=== PATIENT | female | born 1945 | race Caucasian/White ===

== ENCOUNTER 2019-06-13 12:44 | Inpatient (IN) ==
[2019-06-13] MEDS ORDERED: Naloxone 0.4 MG/ML INJ IVP PRN (15:03)
[2019-06-13] MEDS ORDERED: Ondansetron 4 MG/2 ML VIAL IVP PRN (15:03)
[2019-06-13] MEDS ORDERED: MethylPREDNISolone 40 MG/ML VIAL IVP SCH (15:06)
[2019-06-13] MEDS ORDERED: *HR* OxyCODONE/APAP 5/325 TABLET PO PRN (15:07)
[2019-06-13] MEDS ORDERED: Isovue-370 500 ML BOTTLE IVP ONE (15:18)
--- NOTE | 2019-06-13 15:45 | Internal Med History&Physical ---
Date of Encounter: 06/13/19 Time of Encounter: 15:35 Internal Medicine - H&P: HPI Chief complaint: shortness of breath Plans for Post Hospital Care: Home History of present illness: Ms. Ruiz is a 73 year old female PHM of COPD, limited stage, Small Cell carcinoma of the lung on immunotherapy infusion every other , HTN and CAD. Patient presented to the ED due to 2 1/2 days history of shortness of breath. Patient reported she was having some respiratory symptoms on the of the month, and her oncologist start her on a 5 days course of oral antibiotics and a prednisone taper, reported she was feeling well for a couple of days after completing treatment with those medications, but for the past 2 1/2 days she has been feeling short of breath, reported the shortness of breath has been progressively getting worse to the point that she has not been able to get out of bed for the past 2 days, reported she tried to get out of bed today but she almost passed out due to shortness of breath. Denies chest pain, abdominal pain or urinary symptoms but reported productive cough of clear sputum. denies sick contacts. Reported being compliant with her medications and tryin her nebs at home with it did not help and decided to come to the ED for evaluation. Patient was transferred from [facility] for further management. Past Med Surg Social Fam HX - Past Medical History Medical history: COPD, GERD, hyperlipidemia, other Additional medical history: lung cancer Psychiatric history: no psych history - Past Surgical History Surgical History: hysterectomy Additional surgical history: bronchoscopy - Social History Smoking Status: Former smoker Smokeless Tobacco Status: No Alcohol use: none Drug use: none - Family History Father Living Status: Age at : 79 Cause of : CVA Hx Family Cardiac Disorders: Yes Hx Family Cancer: Yes Hx Family Neurologic Disorders: Yes Hx Family Medical Disorders: Yes Internal Medicine - H&P: Meds Duloxetine HCl [Cymbalta] 60 mg PO DAILY 07/28/18 [History] Ipratropium/Albuterol Neb [Duoneb] 3 ml IH Q6HR PRN 07/28/18 [History] Omeprazole [PriLOSEC] 20 mg PO QAM 09/09/18 [History] Amitriptyline [Elavil] 25 mg PO DAILY PRN 12/01/18 [History] Cetirizine HCl [Zyrtec] 10 mg PO DAILY #30 tablet 01/21/19 [Rx] Rivaroxaban [Xarelto] 20 mg PO DAILY #30 tablet 03/04/19 [Rx] Ondansetron HCl [Zofran] 4 mg PO Q6HR 03/18/19 [History] OxyCODONE/APAP 5/325 [Percocet 5/325 MG] 1 each PO Q6HR PRN 03/18/19 [History] Albuterol Sulfate [Ventolin Hfa] 18 gm IH Q4H PRN 05/19/19 [History] Allergy/AdvReac Type Severity Reaction Status Date / Time Influenza Virus Vaccines AdvReac Unknown Weakness Verified 05/19/19 13:57 All Systems PM: A 10-system review of systems was performed and is negative for pertinent findings except as documented above in the HPI. - Constitutional Constitutional: weakness, no chills, no fever(s), no malaise - EENT Nose, mouth and throat: no dry mouth - Cardiovascular Cardiovascular ROS IM: dyspnea, dyspnea on exertion, lightheadedness, no chest pain, no edema, no irregular heart rhythm, no orthopnea, no palpitations, no paroxysmal nocturnal dyspnea - Respiratory Respiratory: cough, dyspnea on exertion, wheezing, no chest congestion, no excessive phlegm production - Gastrointestinal Gastrointestinal: no abdominal pain, no dyspepsia, no dysphagia, no nausea, no vomiting - Genitourinary Genitourinary: no dysuria - Musculoskeletal Musculoskeletal ROS IM: no back pain - Integumentary Integumentary IM: no erythema, no non-healing lesions - Psychiatric Psychiatric: no anxiety, no irritability - Endocrine Endocrine IM: no cold intolerance - Hematologic/Lymphatic Hematologic/Lymphatic: no easy bruising, no lymphadenopathy - Allergic/Immunologic Allergic/Immunologic: no GI upset with certain foods - Constitutional Vitals: Pulse Resp BP Pulse Ox 105 24 118/78 96 06/13/19 14:36 06/13/19 14:36 06/13/19 14:36 06/13/19 14:36 Exam: Vitals: Reviewed General: Alert and oriented x4. In mild distress due to shortness of breath Skin: Normal color, no rash, no lesions. HEENT: EOM, pupils equal, round and reactive. Cardiovascular: RRR, normal S1 & S2, no rubs, murmurs or gallops. Lungs: Scattered b/l wheezes, no rales or crackles. Abdomen: Soft, non-tender, no rigidity. Extremities: No deformity, no edema or tenderness, no joint swelling or clubbing. Neurological: Normal cognition and motor skills. Rest of the physical exam is non contributory - Assessment and Plan (1) Acute exacerbation of chronic obstructive airways disease Current Visit: No Status: Acute Assessment and plan: Patient in mild respiratory distress with b/l scattered expiratory wheezing. Plan Started on bronchodilators Q4RT scheduled Solu-Medrol 40mg/IV Q8hr symbicort. started on empiric antibiotics coverage with levofloxacin 750mg/IV daily Sputum culture and gram stain Respiratory panel ordered urine for atypical organist sent O2 by nasal cannula, titrate for O2Sat >92% CTA of the chest ordered, to evaluate for possible progression of lung ca vs r/o infectious process. (2) DVT prophylaxis Current Visit: Yes Status: Acute Assessment and plan: intermittent pneumatic compression b/l. (3) Acute respiratory failure with hypoxia Current Visit: No Status: Acute Assessment and plan: plan as per problem #1 (4) DVT (deep venous thrombosis) Current Visit: No Status: Chronic Assessment and plan: patient with a Hx of port related DVT. will continue rivaroxaban 20mg/PO daily. Qualifiers: DVT location: non-extremity vein Chronicity: unspecified Qualified Code(s): I82.90 - Acute embolism and thrombosis of unspecified vein (5) Lung cancer Current Visit: No Status: Acute Assessment and plan: Limited stage, Small Cell carcinoma of the lung. Qualifiers: Laterality: right Lung location: hilum of lung Qualified Code(s): C34.01 - Malignant neoplasm of right main bronchus (6) Anxiety Current Visit: No Status: Chronic - Time Spent With Patient Total time spent is greater than 50% in coordination of care (as documented) at patient's floor/unit and/or counseling patient: Greater than 35 minutes (45)
[2019-06-13 15:55] LABS: Basophils # 0.1 K/mcL (0.0-0.2); Basophils % 0.8 %; Eosinophils # 0.5 K/mcL (0.0-0.6); Hematocrit 28.3 % (35.3-44.9); Hemoglobin 8.7 g/dL (11.5-15.4); Immature Granulocytes % 0.4 % (0-4); Lymphocytes # 0.8 K/mcL (0.6-4.6); Lymphocytes % 7.5 %; Mean Corpuscular HGB Conc 30.7 g/dL (31.6-35.5); Mean Corpuscular Hemoglobin 29.3 pg (28.0-33.3); Mean Corpuscular Volume 95.3 fL (83.0-100.0); Mean Platelet Volume 8.7 fL (9.4-12.4); Monocytes # 0.8 K/mcL (0.0-1.3); Monocytes % 7.5 %; Neutrophils # 8.1 K/mcL (1.6-8.9); Platelet Count 374 K/mcL (140-400); Red Blood Count 2.97 M/mcL (3.82-4.97); Red Cell Distribution Width 15.6 % (11.5-14.5); Segmented Neutrophils % 78.8 %; White Blood Count 10.3 K/mcL (4.3-11.1)
[2019-06-13] MEDS: Ipratropium/Albuterol Neb 3 ML IH SCH ×2 (16:12→20:23)
[2019-06-13 16:14] LABS: Alanine Aminotransferase 8 Units/L (7-52); Albumin 3.6 g/dL (3.5-5.7); Albumin/Globulin Ratio 1.3 (1.1-2.2); Alkaline Phosphatase 87 Units/L (34-104); Aspartate Amino Transferase 13 Units/L (13-39); BUN/Creatinine Ratio 13 (6-26); Bilirubin,Total 0.2 mg/dL (0.3-1.0); Blood Urea Nitrogen 9 mg/dL (8-23); Calcium 8.8 mg/dL (8.6-10.3); Carbon Dioxide 27 mEq/L (23-29); Chloride 102 mEq/L (98-107); Globulin 2.7 g/dL (2.4-3.5); Glucose 162 mg/dL (70-105); Magnesium 2.1 mg/dL (1.6-2.6); Osmolality,Calculated 284 (280-300); Potassium 3.8 mEq/L (3.5-5.1); Sodium 136 mEq/L (136-145); Total Protein 6.3 g/dL (6.4-8.9); eGFR For African Americans > 60 (> 60); eGFR For Non-African Americans > 60 (> 60)
[2019-06-13] MEDS: MethylPREDNISolone 40 MG/ML VIAL IVP SCH (17:00)
[2019-06-13] MEDS: *HR* Rivaroxaban 10 MG TABLET PO SCH (17:00)
[2019-06-13] MEDS: levoFLOXacin 750 MG/150 ML 750 MG/150 ML BAG IVPB SCH (17:00)
[2019-06-13 18:05] LABS: INR 1.3; Prothrombin Time 14.8 Seconds (9.4-12.1)
[2019-06-13 18:08] LABS: Activated Partial Thrombo Time 37.2 Seconds (26.0-36.0)
[2019-06-13] MEDS: Budesonide/Formoterol 160/4.5 1 PUFF INH IH SCH (20:23)
[2019-06-13] MEDS ORDERED: *HR* LORazepam 0.5 MG TABLET PO ONE (21:01)
[2019-06-13 22:22] LABS: Adenovirus Not Detected (Not Detect); Coronavirus 229E Not Detected (Not Detect); Coronavirus HKU1 Not Detected (Not Detect); Coronavirus NL63 Not Detected (Not Detect); Coronavirus OC43 Not Detected (Not Detect); Human Metapneumovirus Not Detected (Not Detect)
[2019-06-13 22:23] LABS: Bordetella Pertussis Not Detected (Not Detect); Chlamydophila pneumoniae Not Detected (Not Detect); Human Rhinovirus/Enterovirus Not Detected (Not Detect); Influenza A Subtype 2009 H1 Not Detected (Not Detect); Influenza A Untypeable Not Detected (Not Detect); Influenza B Not Detected (Not Detect); Mycoplasma pneumoniae Not Detected (Not Detect); Parainfluenza Virus 1 Not Detected (Not Detect); Parainfluenza Virus 2 Not Detected (Not Detect); Parainfluenza Virus 3 Not Detected (Not Detect); Parainfluenza Virus 4 Not Detected (Not Detect); Respiratory Syncytial Virus Not Detected (Not Detect)
[2019-06-14] MEDS: Ipratropium/Albuterol Neb 3 ML IH SCH ×7 (00:01→23:48)
[2019-06-14] MEDS: MethylPREDNISolone 40 MG/ML VIAL IVP SCH ×4 (00:15→22:55)
[2019-06-14] MEDS: Budesonide/Formoterol 160/4.5 1 PUFF INH IH SCH ×2 (07:24→19:52)
[2019-06-14] MEDS: levoFLOXacin 750 MG/150 ML 750 MG/150 ML BAG IVPB SCH (08:03)
[2019-06-14] MEDS: *HR* LORazepam 0.5 MG TABLET PO PRN ×2 (09:29→22:55)
[2019-06-14] MEDS ORDERED: D5% in Water 1,000 ML IVC PRN (11:18)
[2019-06-14] MEDS ORDERED: *HR* Dextrose 50 % in Water (Syg) 50 ML SYRINGE IVP PRN (11:18)
[2019-06-14] MEDS ORDERED: Dextrose Gel 15 GM/37.5 ML TUBE PO PRN ×2 (11:18)
--- NOTE | 2019-06-14 11:23 | Internal Med Progress Note ---
Hospitalist Progress Note - Encounter Date of Encounter: 06/14/19 Time of Encounter: 11:15 - Subjective Interval History: I have seen and evaluated the patient at bedside. patient reporting feeling well overnight but this morning she started to feel very short of breath. denies chest pain, nausea, vomiting or abdominal pain. - Exam Vitals: Temp Pulse Resp BP Pulse Ox 97.3 F L 124 26 117/74 94 06/14/19 07:11 06/14/19 07:11 06/14/19 11:04 06/14/19 11:04 06/14/19 11:04 Exam: Vitals: Reviewed General: Alert and oriented x4. In mild distress due to shortness of breath Cardiovascular: RRR, normal S1 & S2, no rubs, murmurs or gallops. Lungs: Scattered b/l wheezes, no rales or crackles. Abdomen: Soft, non-tender, no rigidity. Extremities: No edema Neurological: No focal neurological abnormalities. Rest of the physical exam is non contributory - Assessment and Plan (1) Acute exacerbation of chronic obstructive airways disease Current Visit: No Status: Acute Assessment and Plan: patient in mild/moderate respiratory distress. with scattered b/l inspiratory and expiratory wheezing. denies chest pain. respiratory panel: negative CT/CT angio chest IMPRESSION: No evidence of pulmonary embolism. Stable intrathoracic findings including mediastinal and hilar adenopathy, extensive fibrosis as well as emphysema. A 5 mm right lower lobe nodule is unchanged. Large hiatal hernia. Plan ABG placed patient on Bipap. NPO, accu-checks q6HRs plus lispro low dose sliding scale started on IV fluids to avoid hypoglycemia Increase methyl-solumedrol to 40mg/IV Q6HRs c/w scheduled bronchodilators and symbicort will consider pulm consult patient's respiratory status does not improve continue empiric antibiotics (2) Acute respiratory failure with hypoxia Current Visit: No Status: Acute Assessment and Plan: plan of care as above. (3) DVT (deep venous thrombosis) Current Visit: No Status: Chronic Assessment and Plan: patient with a Hx of port related DVT. c/w rivaroxaban 20mg/PO daily. (4) Lung cancer Current Visit: No Status: Chronic Assessment and Plan: Limited stage, Small Cell carcinoma of the lung. patient to follow up with Hem&Onc as outpatient (5) Anxiety Current Visit: No Status: Chronic Assessment and Plan: Patient is on Lorazepam 0.5mg/PO Q6HR PRN. DVT Prophylaxis: Intermittent pneumatic compression for dvt prophylaxis - Summary of Assessment and Plan Summary of Assessment and Plan: Patient to remain in the hospital due to acute copd exacerbation on Bipap. - Time Spent with Patient Total time spent is greater than 50% in coordination of care (as documented) at patient's floor/unit and/or counseling patient: Greater than 35 minutes (45) Plan of Care Discussed with: patient (and the nurse.) Internal Medicine: Result - Labs CBC & Chem 7: 06/13/19 15:42 06/13/19 15:42 Labs: Short CBC 06/13/19 Range/Units 15:42 WBC 10.3 (4.3-11.1) K/mcL Hgb 8.7 L (11.5-15.4) g/dL Hct 28.3 L (35.3-44.9) % Plt Count 374 (140-400) K/mcL Neutrophils # 8.1 (1.6-8.9) K/mcL BMP 06/13/19 15:42 Sodium 136 Potassium 3.8 Chloride 102 Carbon Dioxide 27 BUN 9 Creatinine 0.68 Glucose 162 H Calcium 8.8 Cardiac Enzymes 06/13/19 06/13/19 06/14/19 Range/Units 15:42 22:22 04:03 Troponin I < 0.03 < 0.03 < 0.03 (< 0.04) ng/mL Liver Function 06/13/19 Range/Units 15:42 Total Bilirubin 0.2 L (0.3-1.0) mg/dL AST 13 (13-39) Units/L ALT 8 (7-52) Units/L Alkaline Phosphatase 87 (34-104) Units/L Albumin 3.6 (3.5-5.7) g/dL - ABG Interpretation ABG results: PT/INR, D-dimer PT 14.8 Seconds (9.4-12.1) H 06/13/19 17:17 - Impressions Impressions Chest X-Ray 06/13/19 16:03 IMPRESSION: Persistent chronic reticular changes in both lungs suggesting diffuse interstitial fibrosis No acute abnormality identified D/ / Wallace Jimenez MD / Wallace Jimenez MD Interpreting Provider: Wallace Jimenez MD Chest CTA 06/13/19 18:39 IMPRESSION: No evidence of pulmonary embolism. Stable intrathoracic findings including mediastinal and hilar adenopathy, extensive fibrosis as well as emphysema. A 5 mm right lower lobe nodule is unchanged. Large hiatal hernia. D/ / [place] Qureshi Cha, MD / [place] Qureshi Cha, MD Interpreting Provider: [place] Qureshi Cha, MD Consult Discharge Plan - Plan Referrals: Herbert Mast, [Primary Care Provider] - (3) DVT (deep venous thrombosis) Qualifiers: DVT location: non-extremity vein Chronicity: unspecified Qualified Code(s): I82.90 - Acute embolism and thrombosis of unspecified vein (4) Lung cancer Qualifiers: Laterality: right Lung location: hilum of lung Qualified Code(s): C34.01 - Malignant neoplasm of right main bronchus
[2019-06-14 11:30] LABS: ABG Base Excess 5 mEq/L (-2 to 3); ABG HCO3 29 mEq/L (21-27); ABG Oxygen Saturation 98 % (95-98); ABG PCO2 39 mmHg (35-45); ABG PH 7.47 pH Units (7.32-7.45); ABG PO2 96 mmHg (85-104); ABG TCO2 30 mEq/L (20-26); Blood Gas Modality NIV
[2019-06-14] MEDS ORDERED: D5% in 0.9% NACL 1,000 ML IVC SCH (11:30)
[2019-06-14] MEDS: Insulin LISPRO 300 UNITS/3 ML VIAL SQ SCH ×2 (12:46→22:53)
[2019-06-14] MEDS: *HR* Rivaroxaban 10 MG TABLET PO SCH (17:21)
[2019-06-15] MEDS: Insulin LISPRO 300 UNITS/3 ML VIAL SQ SCH ×3 (00:16→11:39)
[2019-06-15] MEDS: MethylPREDNISolone 40 MG/ML VIAL IVP SCH ×2 (02:05→08:01)
[2019-06-15] MEDS: Ipratropium/Albuterol Neb 3 ML IH SCH ×6 (04:02→23:59)
[2019-06-15 05:37] LABS: Hematocrit 26.8 % (35.3-44.9); Hemoglobin 8.3 g/dL (11.5-15.4); Mean Corpuscular Hemoglobin 29.2 pg (28.0-33.3); Mean Corpuscular Volume 94.4 fL (83.0-100.0); Mean Platelet Volume 8.6 fL (9.4-12.4); Platelet Count 385 K/mcL (140-400); Red Blood Count 2.84 M/mcL (3.82-4.97); Red Cell Distribution Width 15.7 % (11.5-14.5)
[2019-06-15 05:42] LABS: White Blood Count 19.1 K/mcL (4.3-11.1)
[2019-06-15 05:58] LABS: BUN/Creatinine Ratio 26 (6-26); Blood Urea Nitrogen 19 mg/dL (8-23); Calcium 8.8 mg/dL (8.6-10.3); Carbon Dioxide 29 mEq/L (23-29); Chloride 104 mEq/L (98-107); Glucose 153 mg/dL (70-105); Osmolality,Calculated 291 (280-300); Potassium 4.2 mEq/L (3.5-5.1); Sodium 138 mEq/L (136-145); eGFR For African Americans > 60 (> 60); eGFR For Non-African Americans > 60 (> 60)
[2019-06-15] MEDS: Budesonide/Formoterol 160/4.5 1 PUFF INH IH SCH ×2 (07:13→20:15)
[2019-06-15] MEDS: Azithromycin 250 MG TABLET PO SCH (08:01)
[2019-06-15] MEDS: Loratadine 10 MG TABLET PO SCH (10:04)
--- NOTE | 2019-06-15 12:49 | Internal Med Progress Note ---
Hospitalist Progress Note - Encounter Date of Encounter: 06/15/19 Time of Encounter: 12:46 - Subjective Interval History: Patient says that breathing is better than yesterday but not back to her baseline yet. Has some lower back pain that limits her mobility. - Exam Vitals: Temp Pulse Resp BP Pulse Ox 98.1 F 99 16 115/63 99 06/15/19 07:22 06/15/19 07:22 06/15/19 11:12 06/15/19 07:22 06/15/19 11:12 Exam: General: Ill-appearing and in no acute distress HEENT: No erythema of posterior pharynx. No exudates. Lymphatics: No mandibular or cervical lymphadenopathy Cardiovascular: RRR. No murmurs. No chest wall tenderness. Lungs: Scattered wheezing. Regular chest rise. Abdomen: Non-tender. No rebound or gaurding. Nl bowel sounds. Extremities: No edema. 2+ pulses radial and pedal pulses Skin: No rahses, abrasions, or contusions. Nl cap refill. Psych: Nl attention. A&Ox3 Neuro: human resources team member II-XII intact. 5/5 strength. Sensation to light touch and pinprick intact. - Assessment and Plan (1) Acute and chronic respiratory failure with hypoxia Current Visit: Yes Status: Acute Assessment and Plan: Patient with history of chronic respiratory failure secondary to COPD and recently diagnosed lung cancer on home oxygen presents with acute on chronic hypoxic respiratory failure in the setting of stable vitals, diffuse wheezing on physical exam, and chest imaging without acute findings. -Endorses symptoms of seasonal allergies lately -Was started empirically on Claritin by ambulatory provider without much benefit -No evidence of acute infection during hospital stay or PE -Acute decompensation likely secondary to incompletely treated seasonal allergies -Improving with IV steroids PLAN: - IV steroids --> po - Scheduled nebs - Levaquin --> azithromycin - Restart Claritin - we will transitioned this to Zyrtec on discharge (2) Acute exacerbation of chronic obstructive airways disease Current Visit: No Status: Acute Assessment and Plan: See above (3) DVT (deep venous thrombosis) Current Visit: No Status: Chronic Assessment and Plan: History of DVT on Xarelto (4) Lung cancer Current Visit: No Status: Chronic Assessment and Plan: Currently being treated at [facility] with twice monthly immunotherapy. - Follow up with oncology clinic after hospital stay (5) Leukocytosis Current Visit: Yes Status: Acute Assessment and Plan: Likely secondary to high-dose steroid use Internal Medicine: Result - Labs CBC & Chem 7: 06/15/19 05:08 06/15/19 05:08 Labs: Short CBC 06/15/19 Range/Units 05:08 WBC 19.1 H D (4.3-11.1) K/mcL Hgb 8.3 L (11.5-15.4) g/dL Hct 26.8 L (35.3-44.9) % Plt Count 385 (140-400) K/mcL BMP 06/15/19 05:08 Sodium 138 Potassium 4.2 Chloride 104 Carbon Dioxide 29 BUN 19 Creatinine 0.72 Glucose 153 H Calcium 8.8 - ABG Interpretation ABG results: ABG ABG pH 7.47 pH Units (7.32-7.45) H 06/14/19 11:23 ABG pCO2 39 mmHg (35-45) 06/14/19 11:23 ABG pO2 96 mmHg (85-104) 06/14/19 11:23 ABG O2 Saturation 98 % (95-98) 06/14/19 11:23 PT/INR, D-dimer PT 14.8 Seconds (9.4-12.1) H 06/13/19 17:17 Consult Discharge Plan - Plan Referrals: Herbert Mast, [Primary Care Provider] - (3) DVT (deep venous thrombosis) Qualifiers: DVT location: non-extremity vein Chronicity: unspecified Qualified Code(s): I82.90 - Acute embolism and thrombosis of unspecified vein (4) Lung cancer Qualifiers: Laterality: right Lung location: hilum of lung Qualified Code(s): C34.01 - Malignant neoplasm of right main bronchus
[2019-06-15] MEDS: *HR* Rivaroxaban 10 MG TABLET PO SCH (17:08)
[2019-06-16 03:46] LABS: Hemoglobin 8.3 g/dL (11.5-15.4); Mean Corpuscular HGB Conc 30.7 g/dL (31.6-35.5); Mean Corpuscular Hemoglobin 29.1 pg (28.0-33.3); Mean Corpuscular Volume 94.7 fL (83.0-100.0); Mean Platelet Volume 8.6 fL (9.4-12.4); Platelet Count 386 K/mcL (140-400); Red Blood Count 2.85 M/mcL (3.82-4.97); Red Cell Distribution Width 15.6 % (11.5-14.5); White Blood Count 15.7 K/mcL (4.3-11.1)
[2019-06-16 04:06] LABS: BUN/Creatinine Ratio 26 (6-26); Blood Urea Nitrogen 19 mg/dL (8-23); Calcium 8.6 mg/dL (8.6-10.3); Carbon Dioxide 29 mEq/L (23-29); Chloride 103 mEq/L (98-107); Glucose 108 mg/dL (70-105); Osmolality,Calculated 285 (280-300); Potassium 3.8 mEq/L (3.5-5.1); Sodium 136 mEq/L (136-145); eGFR For African Americans > 60 (> 60); eGFR For Non-African Americans > 60 (> 60)
[2019-06-16] MEDS: Ipratropium/Albuterol Neb 3 ML IH SCH ×6 (04:19→23:36)
[2019-06-16] MEDS ORDERED: *HR* Metoprolol 5 MG/5 ML VIAL IVP ONE (06:43)
[2019-06-16] MEDS: Budesonide/Formoterol 160/4.5 1 PUFF INH IH SCH ×2 (07:27→20:27)
[2019-06-16] MEDS: Loratadine 10 MG TABLET PO SCH (08:35)
[2019-06-16] MEDS: Azithromycin 250 MG TABLET PO SCH (08:35)
[2019-06-16] MEDS: predniSONE 20 MG TABLET PO SCH (08:35)
[2019-06-16] MEDS ORDERED: methylPREDNISolone 125 MG/2 ML VIAL IVP ONE (10:13)
--- NOTE | 2019-06-16 10:17 | Internal Med Progress Note ---
Hospitalist Progress Note - Encounter Date of Encounter: 06/16/19 Time of Encounter: 10:14 - Subjective Interval History: Breathing acutely worse this morning when she got up. Says that it was due to acute back pain. Has chronic back pain but says she might have slept on it wrong and woke up with acute pain. Upon reassessment, breathing improved after pain was controlled. - Exam Vitals: Temp Pulse Resp BP Pulse Ox 98.6 F 78 18 115/59 92 06/16/19 04:15 06/16/19 07:05 06/16/19 07:29 06/16/19 07:05 06/16/19 07:29 Exam: General: Ill-appearing and in no acute distress HEENT: No erythema of posterior pharynx. No exudates. Lymphatics: No mandibular or cervical lymphadenopathy Cardiovascular: RRR. No murmurs. No chest wall tenderness. Lungs: Scattered wheezing. Regular chest rise. Abdomen: Non-tender. No rebound or gaurding. Nl bowel sounds. Extremities: No edema. 2+ pulses radial and pedal pulses Skin: No rahses, abrasions, or contusions. Nl cap refill. Psych: Nl attention. A&Ox3 Neuro: gasoline engine assembler II-XII intact. 5/5 strength. Sensation to light touch and pinprick intact. - Assessment and Plan (1) Acute and chronic respiratory failure with hypoxia Current Visit: Yes Status: Acute Assessment and Plan: Patient with history of chronic respiratory failure secondary to COPD and recently diagnosed lung cancer on home oxygen presents with acute on chronic hypoxic respiratory failure in the setting of stable vitals, diffuse wheezing on physical exam, and chest imaging without acute findings. -Endorses symptoms of seasonal allergies lately -Was started empirically on Claritin by ambulatory provider without much benefit -No evidence of acute infection during hospital stay or PE -Acute decompensation likely secondary to incompletely treated seasonal allergies -Breathing versus morning but related to back pain. Still with diffuse wheezing on physical exam. Repeat CXR w/o changes. PLAN: - Methylprednisolone 125mg IV x1 - Prednisone 40mg qd - Scheduled nebs - Azithromycin for anti-inflammatory properties - Control of back pain - Restart Claritin - we will transitioned this to Zyrtec on discharge (2) Acute exacerbation of chronic obstructive airways disease Current Visit: No Status: Acute Assessment and Plan: See above (3) DVT (deep venous thrombosis) Current Visit: No Status: Chronic Assessment and Plan: History of DVT on Xarelto (4) Lung cancer Current Visit: No Status: Chronic Assessment and Plan: Currently being treated at [facility] with twice monthly immunotherapy. - Follow up with oncology clinic after hospital stay (5) Leukocytosis Current Visit: Yes Status: Acute Assessment and Plan: Likely secondary to high-dose steroid use DVT Prophylaxis: Xarelto Internal Medicine: Result - Labs CBC & Chem 7: 06/16/19 03:20 06/16/19 03:20 Labs: Short CBC 06/16/19 Range/Units 03:20 WBC 15.7 H (4.3-11.1) K/mcL Hgb 8.3 L (11.5-15.4) g/dL Hct 27.0 L (35.3-44.9) % Plt Count 386 (140-400) K/mcL BMP 06/16/19 03:20 Sodium 136 Potassium 3.8 Chloride 103 Carbon Dioxide 29 BUN 19 Creatinine 0.74 Glucose 108 H Calcium 8.6 - ABG Interpretation ABG results: ABG ABG pH 7.47 pH Units (7.32-7.45) H 06/14/19 11:23 ABG pCO2 39 mmHg (35-45) 06/14/19 11:23 ABG pO2 96 mmHg (85-104) 06/14/19 11:23 ABG O2 Saturation 98 % (95-98) 06/14/19 11:23 PT/INR, D-dimer PT 14.8 Seconds (9.4-12.1) H 06/13/19 17:17 - Impressions Impressions Chest X-Ray 06/16/19 09:02 IMPRESSION: No acute abnormality appreciated. Moderate emphysematous changes. Chronic pulmonary fibrotic and interstitial lung changes similar to the prior study. No CHF, acute airspace disease, or pleural effusion appreciated. RECOMMENDATION: CT chest would give a more definitive evaluation of the lungs. D/ / Erick Eastman MD / Erick Eastman MD Interpreting Provider: Erick Eastman MD Consult Discharge Plan - Plan Referrals: Herbert Mast DO [Primary Care Provider] - (3) DVT (deep venous thrombosis) Qualifiers: DVT location: non-extremity vein Chronicity: unspecified Qualified Code(s): I82.90 - Acute embolism and thrombosis of unspecified vein (4) Lung cancer Qualifiers: Laterality: right Lung location: hilum of lung Qualified Code(s): C34.01 - Malignant neoplasm of right main bronchus
[2019-06-16] MEDS: *HR* Rivaroxaban 10 MG TABLET PO SCH (17:52)
[2019-06-16] MEDS: *HR* LORazepam 0.5 MG TABLET PO PRN (20:36)
[2019-06-17 03:42] LABS: Hematocrit 26.8 % (35.3-44.9); Hemoglobin 8.3 g/dL (11.5-15.4); Mean Corpuscular Hemoglobin 28.6 pg (28.0-33.3); Mean Corpuscular Volume 92.4 fL (83.0-100.0); Mean Platelet Volume 8.4 fL (9.4-12.4); Platelet Count 351 K/mcL (140-400); Red Cell Distribution Width 15.4 % (11.5-14.5); White Blood Count 10.9 K/mcL (4.3-11.1)
[2019-06-17] MEDS: Ipratropium/Albuterol Neb 3 ML IH SCH ×3 (03:42→11:09)
--- NOTE | 2019-06-17 07:27 | Discharge Summary ---
Orders not resulted at time of discharge: Pending orders 06/13/19 15:11 Sputum Culture [Culture,Sputum with Gram Stain] [] Stat 06/13/19 15:42 Legionella Type 1 Antibody,IgM Stat Date of Encounter: 06/17/19 Time of Encounter: 07:17 - Discharge Diagnosis (1) Acute and chronic respiratory failure with hypoxia Priority: Primary Status: Acute (2) Acute exacerbation of chronic obstructive airways disease Priority: Secondary Status: Acute (3) DVT (deep venous thrombosis) Priority: Secondary Status: Chronic Qualifiers: DVT location: non-extremity vein Chronicity: unspecified Qualified Code(s): I82.90 - Acute embolism and thrombosis of unspecified vein (4) Lung cancer Priority: Secondary Status: Chronic Qualifiers: Laterality: right Lung location: hilum of lung Qualified Code(s): C34.01 - Malignant neoplasm of right main bronchus (5) Leukocytosis Priority: Secondary Status: Acute Qualifiers: Leukocytosis type: unspecified Qualified Code(s): D72.829 - Elevated white blood cell count, unspecified Hospital course: Ms. Ruiz is a 73 year old female with history of chronic respiratory failure secondary to COPD and recently diagnosed lung cancer on 3.5L home oxygen presented with acute on chronic hypoxic respiratory failure 2/2 decompensated COPD. No evidence of PNA or PE on chest imaging. Presume exacerbation 2/2 a viral illness vs seasonal allergies. On Claritin o/p w/o benefit so this was switched to Zyretc. Still faint wheezing at time of discharge so was sent home on an extended taper of prednisone. Will follow-up with PCP and cancer center. Of note, patient not on long-acting beta or inhaled steroid inhalers because she prefers scheduled Duo-nebs q8 and steroid inhaler contraindicated with her lung cancer chemotherapy. Discharge discussed with: patient - Time Spent with Patient Total time spent providing and/or coordinating discharge services: 75 minutes Time spent: Greater than 30 minutes - Discharge Medications Prescriptions: New predniSONE [PredniSONE] 40 mg PO DAILY #15 tablet Azithromycin [Zithromax] 500 mg PO Q24H #3 tablet Cetirizine HCl [Zyrtec] 10 mg PO Q24H #30 tablet Continued Duloxetine HCl [Cymbalta] 60 mg PO QAM Ipratropium/Albuterol Neb [Duoneb] 3 ml IH Q6HR PRN PRN Reason: Wheezing Omeprazole [PriLOSEC] 20 mg PO QAM Amitriptyline [Elavil] 25 mg PO HS PRN PRN Reason: CLUSTER HEADACHES Rivaroxaban [Xarelto] 20 mg PO DAILY #30 tablet OxyCODONE/APAP 5/325 [Percocet 5/325 MG] 1 each PO Q6HR PRN PRN Reason: Pain Ondansetron HCl [Zofran] 4 mg PO Q6HR PRN PRN Reason: NAUSEA/VOMITING Albuterol Sulfate [Ventolin Hfa] 18 gm IH Q4H PRN PRN Reason: Shortness Of Breath Discontinued Cetirizine HCl [Zyrtec] 10 mg PO DAILY #30 tablet Home Medications: Duloxetine HCl [Cymbalta] 60 mg PO QAM 07/28/18 [History] Ipratropium/Albuterol Neb [Duoneb] 3 ml IH Q6HR PRN 07/28/18 [History] Omeprazole [PriLOSEC] 20 mg PO QAM 09/09/18 [History] Amitriptyline [Elavil] 25 mg PO HS PRN 12/01/18 [History] Rivaroxaban [Xarelto] 20 mg PO DAILY #30 tablet 03/04/19 [Rx] Ondansetron HCl [Zofran] 4 mg PO Q6HR PRN 03/18/19 [History] OxyCODONE/APAP 5/325 [Percocet 5/325 MG] 1 each PO Q6HR PRN 03/18/19 [History] Albuterol Sulfate [Ventolin Hfa] 18 gm IH Q4H PRN 05/19/19 [History] Azithromycin [Zithromax] 500 mg PO Q24H #3 tablet 06/17/19 [Rx] Cetirizine HCl [Zyrtec] 10 mg PO Q24H #30 tablet 06/17/19 [Rx] predniSONE [PredniSONE] 40 mg PO DAILY #15 tablet 06/17/19 [Rx] Allergies/Adverse Reactions: Allergy/AdvReac Type Severity Reaction Status Date / Time Influenza Virus Vaccines AdvReac Unknown Weakness Verified 06/13/19 23:11 Date of admission: 06/16/19 11:26 Primary care physician: Herbert Mast DO Consults: 06/13/19 15:22 Consult to Bottle Filler [CONS] Routine Reason for SW Consult: Home O2 @ 3.5l @ HS 06/15/19 09:14 Consult to Physical Therapy [CONS] Routine Comment: Evaluate, develop and implement POC Reason for Consult: Deconditioning Does patient have active BEDREST order?: No Is patient medically & hemodynamically stable?: Yes Patient assessed for mobility or mobilized this visit?: No - Constitutional Vitals: Temp Pulse Resp BP Pulse Ox 98.6 F 96 16 121/86 92 06/17/19 04:37 06/17/19 04:37 06/17/19 04:37 06/17/19 04:37 06/17/19 04:37 Exam: General: Ill-appearing and in no acute distress HEENT: No erythema of posterior pharynx. No exudates. Lymphatics: No mandibular or cervical lymphadenopathy Cardiovascular: RRR. No murmurs. No chest wall tenderness. Lungs: Scattered wheezing. Regular chest rise. Abdomen: Non-tender. No rebound or gaurding. Nl bowel sounds. Extremities: No edema. 2+ pulses radial and pedal pulses Skin: No rahses, abrasions, or contusions. Nl cap refill. Psych: Nl attention. A&Ox3 Neuro: fruit packer II-XII intact. 5/5 strength. Sensation to light touch and pinprick intact. - Patient Status Disposition: Home Health Service Condition: Fair Functional capacity at discharge: independent ambulation Overall status at discharge: patient is progressing back to baseline - Discharge Instructions Follow Up With: Herbert Mast DO [Primary Care Provider] - - Diet and Activity Activity: as per physical therapy Diet: advance to your usual diet
--- NOTE | 2019-06-17 07:39 | Physician Discharge Referral ---
Home Health/Hosp Referral Info Transfer to: Home Health Attending Provider: Wallace Trevino MD Provider in Charge Post Discharge: PCP - Diagnosis (1) Acute and chronic respiratory failure with hypoxia Priority: Primary Status: Acute (2) Acute exacerbation of chronic obstructive airways disease Priority: Secondary Status: Acute (3) DVT (deep venous thrombosis) Priority: Secondary Status: Chronic (4) Leukocytosis Status: Acute (5) Lung cancer Priority: Secondary Status: Chronic - Respiratory Orders Oxygen / L per min (3.5L) Smoking Cessation: Smoking cessation has been advised. For more information, call the [place] Tobacco Quit Line at 8-482-AKZF-NOW. - Diet/Nutrition Diet/Nutrition Orders: Regular - Activity Activity Orders: Up ad kavitha, Ambulate, Walker - Services Needed Following services are medically necessary services: Physical Therapy - Transfer Medications Prescriptions: predniSONE [PredniSONE] 40 mg PO DAILY #15 tablet Transmission Status: Received by [facility] Azithromycin [Zithromax] 500 mg PO Q24H #3 tablet Transmission Status: Received by [facility] Cetirizine HCl [Zyrtec] 10 mg PO Q24H #30 tablet Transmission Status: Pending to [facility] Home Medications: Duloxetine HCl [Cymbalta] 60 mg PO QAM 07/28/18 [History] Ipratropium/Albuterol Neb [Duoneb] 3 ml IH Q6HR PRN 07/28/18 [History] Omeprazole [PriLOSEC] 20 mg PO QAM 09/09/18 [History] Amitriptyline [Elavil] 25 mg PO HS PRN 12/01/18 [History] Rivaroxaban [Xarelto] 20 mg PO DAILY #30 tablet 03/04/19 [Rx] Ondansetron HCl [Zofran] 4 mg PO Q6HR PRN 03/18/19 [History] OxyCODONE/APAP 5/325 [Percocet 5/325 MG] 1 each PO Q6HR PRN 03/18/19 [History] Albuterol Sulfate [Ventolin Hfa] 18 gm IH Q4H PRN 05/19/19 [History] Azithromycin [Zithromax] 500 mg PO Q24H #3 tablet 06/17/19 [Rx] Cetirizine HCl [Zyrtec] 10 mg PO Q24H #30 tablet 06/17/19 [Rx] predniSONE [PredniSONE] 40 mg PO DAILY #15 tablet 06/17/19 [Rx] Allergies/Adverse Reactions: Allergy/AdvReac Type Severity Reaction Status Date / Time Influenza Virus Vaccines AdvReac Unknown Weakness Verified 06/13/19 23:11 Certification: Further, I certify that my clinical findings support that this patient is homebound (i.e. absences from home require considerable and taxing effort and are for medical reasons or [employer] services or infrequently or short duration when for other reasons) because: Very limited mobility 2/2 hypoxic resp failure Homebound Reason: Patient requires assistance of a person or device to safely leave home Attestation: My signature below is to certify that this patient is under my care and that I, or nurse practitioner, or a physician's digital assistant working with me, has a [id number] encounter with this patient. Wallace Trevino MD
[2019-06-17] MEDS: Budesonide/Formoterol 160/4.5 1 PUFF INH IH SCH (07:48)
[2019-06-17 08:02] VITALS: BP 138/81
[2019-06-17] MEDS: Loratadine 10 MG TABLET PO SCH (09:35)
[2019-06-17] MEDS: predniSONE 20 MG TABLET PO SCH (09:35)
[2019-06-17] MEDS: Azithromycin 250 MG TABLET PO SCH (09:35)
== END 2019-06-17 14:30 | disposition home health service (06) | DRG 190 ==
LOC: 2NENU
PROVIDERS: ADMIT Internal Medicine; ATTEND Internal Medicine

== ENCOUNTER 2019-08-27 06:16 | Inpatient (IN) ==
[2019-08-27] MEDS ORDERED: Ondansetron 4 MG/2 ML VIAL IVP PRN (09:37)
[2019-08-27] MEDS ORDERED: Naloxone 0.4 MG/ML INJ IVP PRN (09:37)
[2019-08-27] MEDS ORDERED: Isovue-370 500 ML BOTTLE IVP ONE (09:38)
[2019-08-27] MEDS: Levalbuterol Neb 0.63 MG/3 ML IH SCH ×3 (10:46→21:15)
[2019-08-27] MEDS: Azithromycin 500 MG in 0.9 % Sodium Chloride 250 ML IVPB SCH (10:57)
[2019-08-27 12:30] LABS: Adenovirus Not Detected (Not Detect); Bordetella Pertussis Not Detected (Not Detect); Chlamydophila pneumoniae Not Detected (Not Detect); Coronavirus 229E Not Detected (Not Detect); Coronavirus HKU1 Not Detected (Not Detect); Coronavirus NL63 Not Detected (Not Detect); Coronavirus OC43 Not Detected (Not Detect); Human Metapneumovirus Not Detected (Not Detect); Human Rhinovirus/Enterovirus Not Detected (Not Detect); Influenza A Subtype 2009 H1 Not Detected (Not Detect); Influenza A Untypeable Not Detected (Not Detect); Influenza B Not Detected (Not Detect); Mycoplasma pneumoniae Not Detected (Not Detect); Parainfluenza Virus 1 Not Detected (Not Detect); Parainfluenza Virus 2 Not Detected (Not Detect); Parainfluenza Virus 3 Not Detected (Not Detect); Parainfluenza Virus 4 Not Detected (Not Detect); Respiratory Syncytial Virus Not Detected (Not Detect)
[2019-08-27] MEDS: MethylPREDNISolone 40 MG/ML VIAL IVP SCH (18:51)
[2019-08-27] MEDS: *HR* Enoxaparin 60 MG/0.6 ML SYRINGE SQ SCH (18:51)
[2019-08-27] MEDS ORDERED: Menthol 9.1 MG LOZENGE PO PRN (18:59)
[2019-08-28] MEDS: Levalbuterol Neb 0.63 MG/3 ML IH SCH ×4 (04:26→21:32)
[2019-08-28] MEDS: *HR* Enoxaparin 60 MG/0.6 ML SYRINGE SQ SCH ×2 (05:56→17:15)
[2019-08-28] MEDS: MethylPREDNISolone 40 MG/ML VIAL IVP SCH ×2 (05:56→17:15)
[2019-08-28 06:32] LABS: Basophils % 0.1 %; Hematocrit 36.8 % (35.3-44.9); Hemoglobin 11.7 g/dL (11.5-15.4); Immature Granulocytes % 0.4 % (0-4); Lymphocytes # 0.7 K/mcL (0.6-4.6); Lymphocytes % 5.9 %; Mean Corpuscular HGB Conc 31.8 g/dL (31.6-35.5); Mean Corpuscular Hemoglobin 26.7 pg (28.0-33.3); Mean Platelet Volume 9.7 fL (9.4-12.4); Monocytes # 0.6 K/mcL (0.0-1.3); Neutrophils # 9.7 K/mcL (1.6-8.9); Platelet Count 376 K/mcL (140-400); Red Blood Count 4.38 M/mcL (3.82-4.97); Red Cell Distribution Width 14.9 % (11.5-14.5); Segmented Neutrophils % 88.6 %; White Blood Count 10.9 K/mcL (4.3-11.1)
[2019-08-28 06:37] LABS: Prothrombin Time 11.8 Seconds (9.4-12.1)
[2019-08-28 06:57] LABS: BUN/Creatinine Ratio 23 (6-26); Blood Urea Nitrogen 14 mg/dL (8-23); Calcium 9.3 mg/dL (8.6-10.3); Carbon Dioxide 31 mEq/L (23-29); Chloride 99 mEq/L (98-107); Glucose 120 mg/dL (70-105); Magnesium 2.2 mg/dL (1.6-2.6); Osmolality,Calculated 290 (280-300); Potassium 3.9 mEq/L (3.5-5.1); Sodium 139 mEq/L (136-145); eGFR For African Americans > 60 (> 60); eGFR For Non-African Americans > 60 (> 60)
[2019-08-28 07:22] LABS: ABG Base Excess 6 mEq/L (-2 to 3); ABG HCO3 34 mEq/L (21-27); ABG Oxygen Saturation 94 % (95-98); ABG PCO2 59 mmHg (35-45); ABG PH 7.37 pH Units (7.32-7.45); ABG PO2 74 mmHg (85-104); ABG TCO2 36 mEq/L (20-26)
[2019-08-28] MEDS: Azithromycin 500 MG in 0.9 % Sodium Chloride 250 ML IVPB SCH (09:31)
[2019-08-28] MEDS: Aspirin Enteric Coated 81 MG Tablet PO SCH (09:32)
[2019-08-28] MEDS: *HR* HYDROcodone/Acet 5/325 mg TABLET PO PRN (20:09)
[2019-08-29] MEDS: Levalbuterol Neb 0.63 MG/3 ML IH SCH (03:30)
[2019-08-29] MEDS: MethylPREDNISolone 40 MG/ML VIAL IVP SCH ×2 (05:10→17:59)
[2019-08-29] MEDS: *HR* Enoxaparin 60 MG/0.6 ML SYRINGE SQ SCH (05:10)
[2019-08-29] MEDS: Azithromycin 250 MG TABLET PO SCH (08:03)
[2019-08-29] MEDS: Aspirin Enteric Coated 81 MG Tablet PO SCH (08:03)
[2019-08-29] MEDS: *HR* HYDROcodone/Acet 5/325 mg TABLET PO PRN (08:24)
[2019-08-29] MEDS: Ipratropium Neb 0.5 MG NEBULIZER IH SCH ×6 (10:38→23:48)
[2019-08-29] MEDS: Levalbuterol Neb 1.25 MG/3 ML IH SCH ×6 (10:38→23:48)
[2019-08-29 11:15] LABS: ABG Base Excess 6 mEq/L (-2 to 3); ABG HCO3 31 mEq/L (21-27); ABG Oxygen Saturation 90 % (95-98); ABG PCO2 43 mmHg (35-45); ABG PH 7.46 pH Units (7.32-7.45); ABG PO2 55 mmHg (85-104); ABG TCO2 32 mEq/L (20-26)
[2019-08-29 15:11] LABS: Basophils % 0.1 %; Hematocrit 38.9 % (35.3-44.9); Hemoglobin 12.3 g/dL (11.5-15.4); Immature Granulocytes % 0.4 % (0-4); Lymphocytes # 0.8 K/mcL (0.6-4.6); Lymphocytes % 5.8 %; Mean Corpuscular HGB Conc 31.6 g/dL (31.6-35.5); Mean Corpuscular Volume 85.3 fL (83.0-100.0); Mean Platelet Volume 9.2 fL (9.4-12.4); Monocytes # 0.8 K/mcL (0.0-1.3); Monocytes % 6.2 %; Neutrophils # 11.7 K/mcL (1.6-8.9); Platelet Count 385 K/mcL (140-400); Red Blood Count 4.56 M/mcL (3.82-4.97); Red Cell Distribution Width 15.1 % (11.5-14.5); Segmented Neutrophils % 87.5 %; White Blood Count 13.3 K/mcL (4.3-11.1)
[2019-08-29] MEDS: Metoprolol XL (24 HR) Succ 25 MG TAB.ER.24H PO SCH (15:12)
[2019-08-29 15:31] LABS: BUN/Creatinine Ratio 35 (6-26); Blood Urea Nitrogen 24 mg/dL (8-23); Calcium 9.4 mg/dL (8.6-10.3); Carbon Dioxide 31 mEq/L (23-29); Chloride 102 mEq/L (98-107); Glucose 122 mg/dL (70-105); Osmolality,Calculated 293 (280-300); Phosphorous 2.8 mg/dL (2.7-4.5); Potassium 3.7 mEq/L (3.5-5.1); Sodium 139 mEq/L (136-145); eGFR For African Americans > 60 (> 60); eGFR For Non-African Americans > 60 (> 60)
[2019-08-29] MEDS: *HR* Enoxaparin 80 MG/0.8 ML SYRINGE SQ SCH (17:59)
[2019-08-30] MEDS: Levalbuterol Neb 1.25 MG/3 ML IH SCH ×5 (04:12→19:56)
[2019-08-30] MEDS: Ipratropium Neb 0.5 MG NEBULIZER IH SCH ×5 (04:12→19:56)
[2019-08-30] MEDS: MethylPREDNISolone 40 MG/ML VIAL IVP SCH ×2 (05:12→17:51)
[2019-08-30] MEDS: *HR* Enoxaparin 80 MG/0.8 ML SYRINGE SQ SCH (05:12)
[2019-08-30] MEDS: Aspirin Enteric Coated 81 MG Tablet PO SCH (07:52)
[2019-08-30] MEDS: Metoprolol XL (24 HR) Succ 25 MG TAB.ER.24H PO SCH (07:52)
[2019-08-30] MEDS: Azithromycin 250 MG TABLET PO SCH (07:52)
[2019-08-30 09:39] LABS: Basophils % 0.1 %; Hematocrit 39.9 % (35.3-44.9); Hemoglobin 12.5 g/dL (11.5-15.4); Immature Granulocytes % 0.4 % (0-4); Lymphocytes # 0.5 K/mcL (0.6-4.6); Lymphocytes % 4.1 %; Mean Corpuscular HGB Conc 31.3 g/dL (31.6-35.5); Mean Corpuscular Volume 86.2 fL (83.0-100.0); Mean Platelet Volume 9.2 fL (9.4-12.4); Monocytes # 0.3 K/mcL (0.0-1.3); Neutrophils # 11.5 K/mcL (1.6-8.9); Platelet Count 396 K/mcL (140-400); Red Blood Count 4.63 M/mcL (3.82-4.97); Red Cell Distribution Width 15.5 % (11.5-14.5); Segmented Neutrophils % 93.4 %; White Blood Count 12.3 K/mcL (4.3-11.1)
[2019-08-30 10:08] LABS: BUN/Creatinine Ratio 24 (6-26); Blood Urea Nitrogen 19 mg/dL (8-23); Calcium 9.4 mg/dL (8.6-10.3); Carbon Dioxide 27 mEq/L (23-29); Chloride 100 mEq/L (98-107); Glucose 172 mg/dL (70-105); Osmolality,Calculated 296 (280-300); Potassium 3.2 mEq/L (3.5-5.1); Sodium 140 mEq/L (136-145); eGFR For African Americans > 60 (> 60); eGFR For Non-African Americans > 60 (> 60)
[2019-08-30] MEDS: *HR* HYDROcodone/Acet 5/325 mg TABLET PO PRN (17:56)
[2019-08-31] MEDS: Ipratropium Neb 0.5 MG NEBULIZER IH SCH ×7 (00:21→23:43)
[2019-08-31] MEDS: Levalbuterol Neb 1.25 MG/3 ML IH SCH ×7 (00:21→23:43)
[2019-08-31 04:33] LABS: Basophils % 0.2 %; Hematocrit 36.3 % (35.3-44.9); Hemoglobin 11.7 g/dL (11.5-15.4); Immature Granulocytes % 1.3 % (0-4); Immature Platelets 2.8 % (1.1-6.1); Lymphocytes # 0.9 K/mcL (0.6-4.6); Lymphocytes % 7.2 %; Mean Corpuscular HGB Conc 32.2 g/dL (31.6-35.5); Mean Corpuscular Hemoglobin 26.9 pg (28.0-33.3); Mean Corpuscular Volume 83.4 fL (83.0-100.0); Mean Platelet Volume 9.6 fL (9.4-12.4); Monocytes # 0.6 K/mcL (0.0-1.3); Monocytes % 4.9 %; Neutrophils # 11.2 K/mcL (1.6-8.9); Platelet Count 316 K/mcL (140-400); Red Blood Count 4.35 M/mcL (3.82-4.97); Red Cell Distribution Width 15.3 % (11.5-14.5); Segmented Neutrophils % 86.4 %
[2019-08-31 04:50] LABS: BUN/Creatinine Ratio 28 (6-26); Blood Urea Nitrogen 21 mg/dL (8-23); Calcium 8.8 mg/dL (8.6-10.3); Carbon Dioxide 31 mEq/L (23-29); Chloride 102 mEq/L (98-107); Glucose 122 mg/dL (70-105); Osmolality,Calculated 290 (280-300); Potassium 3.8 mEq/L (3.5-5.1); Sodium 138 mEq/L (136-145); eGFR For African Americans > 60 (> 60); eGFR For Non-African Americans > 60 (> 60)
[2019-08-31] MEDS: *HR* Enoxaparin 40 MG/0.4 ML SYRINGE SQ SCH (05:55)
[2019-08-31] MEDS: MethylPREDNISolone 40 MG/ML VIAL IVP SCH ×2 (05:56→17:04)
[2019-08-31] MEDS: Azithromycin 250 MG TABLET PO SCH (08:42)
[2019-08-31] MEDS: Aspirin Enteric Coated 81 MG Tablet PO SCH (08:42)
[2019-08-31] MEDS: Metoprolol XL (24 HR) Succ 25 MG TAB.ER.24H PO SCH (08:43)
[2019-09-01] MEDS: Levalbuterol Neb 1.25 MG/3 ML IH SCH ×5 (03:53→19:44)
[2019-09-01] MEDS: Ipratropium Neb 0.5 MG NEBULIZER IH SCH ×5 (03:53→19:44)
[2019-09-01 05:22] LABS: Basophils # 0.1 K/mcL (0.0-0.2); Basophils % 0.5 %; Eosinophils % 0.2 %; Hematocrit 36.4 % (35.3-44.9); Hemoglobin 11.6 g/dL (11.5-15.4); Immature Granulocytes % 1.5 % (0-4); Lymphocytes # 1.6 K/mcL (0.6-4.6); Lymphocytes % 10.6 %; Mean Corpuscular HGB Conc 31.9 g/dL (31.6-35.5); Mean Corpuscular Hemoglobin 26.7 pg (28.0-33.3); Mean Corpuscular Volume 83.9 fL (83.0-100.0); Monocytes # 1.2 K/mcL (0.0-1.3); Monocytes % 8.1 %; Neutrophils # 12.1 K/mcL (1.6-8.9); Platelet Count 334 K/mcL (140-400); Red Blood Count 4.34 M/mcL (3.82-4.97); Red Cell Distribution Width 15.5 % (11.5-14.5); Segmented Neutrophils % 79.1 %; White Blood Count 15.3 K/mcL (4.3-11.1)
[2019-09-01] MEDS: *HR* Enoxaparin 40 MG/0.4 ML SYRINGE SQ SCH (06:09)
[2019-09-01] MEDS: MethylPREDNISolone 40 MG/ML VIAL IVP SCH (06:10)
[2019-09-01] MEDS: Metoprolol XL (24 HR) Succ 25 MG TAB.ER.24H PO SCH (08:12)
[2019-09-01] MEDS: Aspirin Enteric Coated 81 MG Tablet PO SCH (08:12)
[2019-09-02] MEDS: Levalbuterol Neb 1.25 MG/3 ML IH SCH ×6 (00:07→19:52)
[2019-09-02] MEDS: Ipratropium Neb 0.5 MG NEBULIZER IH SCH ×6 (00:07→19:52)
[2019-09-02 04:32] LABS: Basophils # 0.1 K/mcL (0.0-0.2); Basophils % 0.4 %; Eosinophils # 0.4 K/mcL (0.0-0.6); Eosinophils % 2.6 %; Hematocrit 34.7 % (35.3-44.9); Hemoglobin 10.6 g/dL (11.5-15.4); Immature Granulocytes % 2.5 % (0-4); Lymphocytes # 2.8 K/mcL (0.6-4.6); Lymphocytes % 17.4 %; Mean Corpuscular HGB Conc 30.5 g/dL (31.6-35.5); Mean Corpuscular Hemoglobin 26.4 pg (28.0-33.3); Mean Corpuscular Volume 86.5 fL (83.0-100.0); Mean Platelet Volume 9.6 fL (9.4-12.4); Monocytes # 1.5 K/mcL (0.0-1.3); Monocytes % 9.1 %; Neutrophils # 10.9 K/mcL (1.6-8.9); Platelet Count 316 K/mcL (140-400); Red Blood Count 4.01 M/mcL (3.82-4.97); Red Cell Distribution Width 15.8 % (11.5-14.5); White Blood Count 16.1 K/mcL (4.3-11.1)
[2019-09-02] MEDS: *HR* Enoxaparin 40 MG/0.4 ML SYRINGE SQ SCH (05:25)
[2019-09-02] MEDS ORDERED: MethylPREDNISolone 40 MG/ML VIAL IVP SCH (09:00)
[2019-09-02] MEDS: Metoprolol XL (24 HR) Succ 25 MG TAB.ER.24H PO SCH (09:35)
[2019-09-02] MEDS: Aspirin Enteric Coated 81 MG Tablet PO SCH (09:35)
[2019-09-03] MEDS: Ipratropium Neb 0.5 MG NEBULIZER IH SCH ×5 (00:33→15:38)
[2019-09-03] MEDS: Levalbuterol Neb 1.25 MG/3 ML IH SCH ×5 (00:33→15:38)
[2019-09-03] MEDS: *HR* Enoxaparin 40 MG/0.4 ML SYRINGE SQ SCH (04:43)
[2019-09-03 06:12] LABS: Basophils # 0.1 K/mcL (0.0-0.2); Basophils % 0.5 %; Eosinophils # 0.6 K/mcL (0.0-0.6); Eosinophils % 3.6 %; Hematocrit 36.5 % (35.3-44.9); Hemoglobin 11.4 g/dL (11.5-15.4); Immature Granulocytes % 1.9 % (0-4); Lymphocytes # 2.9 K/mcL (0.6-4.6); Mean Corpuscular HGB Conc 31.2 g/dL (31.6-35.5); Mean Corpuscular Hemoglobin 26.8 pg (28.0-33.3); Mean Corpuscular Volume 85.7 fL (83.0-100.0); Mean Platelet Volume 9.6 fL (9.4-12.4); Monocytes # 1.1 K/mcL (0.0-1.3); Neutrophils # 11.3 K/mcL (1.6-8.9); Platelet Count 351 K/mcL (140-400); Red Blood Count 4.26 M/mcL (3.82-4.97); Red Cell Distribution Width 15.8 % (11.5-14.5); White Blood Count 16.3 K/mcL (4.3-11.1)
[2019-09-03 06:29] LABS: BUN/Creatinine Ratio 31 (6-26); Blood Urea Nitrogen 20 mg/dL (8-23); Calcium 8.2 mg/dL (8.6-10.3); Carbon Dioxide 28 mEq/L (23-29); Chloride 101 mEq/L (98-107); Glucose 92 mg/dL (70-105); Osmolality,Calculated 284 (280-300); Potassium 3.6 mEq/L (3.5-5.1); Sodium 136 mEq/L (136-145); eGFR For African Americans > 60 (> 60); eGFR For Non-African Americans > 60 (> 60)
[2019-09-03] MEDS: Metoprolol XL (24 HR) Succ 25 MG TAB.ER.24H PO SCH (08:26)
[2019-09-03] MEDS: Aspirin Enteric Coated 81 MG Tablet PO SCH (08:26)
[2019-09-03] MEDS ORDERED: predniSONE 20 MG TABLET PO SCH (09:00)
[2019-09-03 11:11] VITALS: BP 99/63
== END 2019-09-03 17:41 | disposition home or self-care (01) | DRG 190 ==
LOC: 2ANU → SUATTDRO 08:34
PROVIDERS: ADMIT Internal Medicine; ATTEND Internal Medicine

== ENCOUNTER 2020-04-24 10:39 | Inpatient (IN) ==
[2020-04-24] MEDS ORDERED: Ondansetron 4 MG/2 ML VIAL IVP PRN (13:25)
[2020-04-24] MEDS ORDERED: Naloxone 0.4 MG/ML INJ IVP PRN (13:25)
[2020-04-24 14:39] LABS: Adenovirus Not Detected (Not Detect); Bordetella Pertussis Not Detected (Not Detect); Chlamydophila pneumoniae Not Detected (Not Detect); Coronavirus 229E Not Detected (Not Detect); Coronavirus HKU1 Not Detected (Not Detect); Coronavirus NL63 Not Detected (Not Detect); Coronavirus OC43 Not Detected (Not Detect); Human Metapneumovirus Not Detected (Not Detect); Human Rhinovirus/Enterovirus Not Detected (Not Detect); Influenza A Subtype 2009 H1 Not Detected (Not Detect); Influenza B Not Detected (Not Detect); Mycoplasma pneumoniae Not Detected (Not Detect); Parainfluenza Virus 1 Not Detected (Not Detect); Parainfluenza Virus 2 Not Detected (Not Detect); Parainfluenza Virus 3 Not Detected (Not Detect); Parainfluenza Virus 4 Not Detected (Not Detect); Respiratory Syncytial Virus Not Detected (Not Detect)
[2020-04-24 15:30] LABS: Basophils % 0.1 %; Hematocrit 32.4 % (35.3-44.9); Immature Granulocytes % 0.5 % (0-4); Lymphocytes # 0.2 K/mcL (0.6-4.6); Lymphocytes % 1.1 %; Mean Corpuscular HGB Conc 30.9 g/dL (31.6-35.5); Mean Corpuscular Hemoglobin 27.9 pg (28.0-33.3); Mean Corpuscular Volume 90.3 fL (83.0-100.0); Mean Platelet Volume 8.9 fL (9.4-12.4); Monocytes # 0.1 K/mcL (0.0-1.3); Monocytes % 0.7 %; Neutrophils # 20.2 K/mcL (1.6-8.9); Platelet Count 349 K/mcL (140-400); Red Blood Count 3.59 M/mcL (3.82-4.97); Segmented Neutrophils % 97.6 %; White Blood Count 20.7 K/mcL (4.3-11.1)
[2020-04-24 16:02] LABS: Alanine Aminotransferase 10 Units/L (7-52); Albumin 3.6 g/dL (3.5-5.7); Albumin/Globulin Ratio 1.2 (1.1-2.2); Alkaline Phosphatase 81 Units/L (34-104); Aspartate Amino Transferase 12 Units/L (13-39); BUN/Creatinine Ratio 22 (6-26); Bilirubin,Total 0.5 mg/dL (0.3-1.0); Blood Urea Nitrogen 16 mg/dL (8-23); Calcium 9.3 mg/dL (8.6-10.3); Carbon Dioxide 25 mEq/L (23-29); Chloride 98 mEq/L (98-107); Glucose 144 mg/dL (70-105); Osmolality,Calculated 278 (280-300); Potassium 4.6 mEq/L (3.5-5.1); Sodium 132 mEq/L (136-145); Total Protein 6.6 g/dL (6.4-8.9); eGFR For African Americans > 60 (> 60); eGFR For Non-African Americans > 60 (> 60)
[2020-04-24] MEDS: Levalbuterol Neb 0.63 MG/3 ML IH SCH ×3 (16:17→23:07)
[2020-04-24] MEDS: *HR* Heparin 5,000 UNIT/ML VIAL SQ SCH (17:27)
[2020-04-24] MEDS: MethylPREDNISolone 40 MG/ML VIAL IVP SCH (17:27)
[2020-04-24] MEDS: *HR* OxyCODONE/APAP 5/325 TABLET PO PRN (21:21)
[2020-04-24] MEDS: Metoprolol XL (24 HR) Succ 25 MG TAB.ER.24H PO SCH (21:22)
[2020-04-24] MEDS: Furosemide 40 MG TABLET PO SCH (21:23)
[2020-04-25] MEDS: Levalbuterol Neb 0.63 MG/3 ML IH SCH (04:33)
[2020-04-25 05:09] LABS: Basophils % 0.1 %; Lymphocytes % 1.7 %
[2020-04-25 05:10] LABS: Hematocrit 29.7 % (35.3-44.9); Hemoglobin 9.5 g/dL (11.5-15.4); Immature Granulocytes % 0.9 % (0-4); Lymphocytes # 0.5 K/mcL (0.6-4.6); Mean Corpuscular Hemoglobin 29.1 pg (28.0-33.3); Mean Corpuscular Volume 90.8 fL (83.0-100.0); Mean Platelet Volume 9.3 fL (9.4-12.4); Neutrophils # 26.2 K/mcL (1.6-8.9); Platelet Count 325 K/mcL (140-400); Red Blood Count 3.27 M/mcL (3.82-4.97); Red Cell Distribution Width 15.2 % (11.5-14.5); Segmented Neutrophils % 95.3 %; White Blood Count 27.5 K/mcL (4.3-11.1)
[2020-04-25 05:24] LABS: BUN/Creatinine Ratio 31 (6-26); Blood Urea Nitrogen 24 mg/dL (8-23); Calcium 9.3 mg/dL (8.6-10.3); Carbon Dioxide 26 mEq/L (23-29); Chloride 100 mEq/L (98-107); Glucose 149 mg/dL (70-105); Magnesium 2.3 mg/dL (1.6-2.6); Osmolality,Calculated 285 (280-300); Potassium 4.3 mEq/L (3.5-5.1); Sodium 134 mEq/L (136-145); eGFR For African Americans > 60 (> 60); eGFR For Non-African Americans > 60 (> 60)
[2020-04-25] MEDS: MethylPREDNISolone 40 MG/ML VIAL IVP SCH ×2 (05:41→15:28)
[2020-04-25] MEDS: *HR* Heparin 5,000 UNIT/ML VIAL SQ SCH ×2 (05:42→15:12)
[2020-04-25 05:51] LABS: Monocytes # 0.6 K/mcL (0.0-1.3)
[2020-04-25 06:37] LABS: Bilirubin,Urine Negative (Negative); Blood,Urine Trace (Negative); Clarity,Urine Clear (Clear); Color,Urine Light-Yellow (Yellow); Glucose,Urine (UA) 50 mg/dL (Normal); Hyaline Casts,Urine Few per lpf (None Seen); Ketones,Urine Negative (Negative); Leukocyte Esterase,Urine Negative (Negative); Mucus,Urine Few per lpf (None-Few); Nitrite,Urine Negative (Negative); PH,Urine 5.5 pH Units (5.0-8.0); Protein,Urine Trace mg/dL (Neg-Trace); RBC,Urine 0-3 per hpf (0-3); Specific Gravity,Urine 1.024 (1.010-1.025); Squamous Epithelial Cell,Urine Few per hpf (None-Few); Urobilinogen,Urine Normal (Normal); WBC,Urine 0-3 per hpf (0-3)
[2020-04-25 06:43] LABS: Platelet Estimate Normal (Normal)
[2020-04-25] MEDS: Furosemide 40 MG TABLET PO SCH ×2 (07:58→15:22)
[2020-04-25] MEDS ORDERED: levoFLOXacin 750 MG/150 ML 750 MG/150 ML BAG IVPB SCH (09:00)
[2020-04-25] MEDS ORDERED: Ondansetron ODT 4 MG TAB.RAPDIS PO PRN (09:16)
[2020-04-25] MEDS ORDERED: Vancomycin 1,250 MG/262.5 ML IV.SOLN IVPB ONE (09:54)
[2020-04-25] MEDS: Cefepime HCl 1,000 MG in Water for inj. (sterile) 10 ML IVP SCH ×2 (10:19→15:22)
[2020-04-25] MEDS: Cyanocobalamin (B-12) 1,000 MCG TABLET PO SCH (10:20)
[2020-04-25] MEDS: Aspirin Enteric Coated 81 MG Tablet PO SCH (10:20)
[2020-04-25] MEDS: Levalbuterol Neb 1.25 MG/3 ML IH SCH ×4 (10:35→22:23)
[2020-04-25] MEDS: Metoprolol XL (24 HR) Succ 25 MG TAB.ER.24H PO SCH (21:25)
[2020-04-25] MEDS: *HR* OxyCODONE/APAP 5/325 TABLET PO PRN (21:28)
[2020-04-26] MEDS: Cefepime HCl 1,000 MG in Water for inj. (sterile) 10 ML IVP SCH ×3 (00:55→16:22)
[2020-04-26] MEDS: Levalbuterol Neb 1.25 MG/3 ML IH SCH ×4 (03:45→22:30)
[2020-04-26 05:00] LABS: Hemoglobin 8.9 g/dL (11.5-15.4); Mean Platelet Volume 9.1 fL (9.4-12.4)
[2020-04-26 05:01] LABS: Hematocrit 27.6 % (35.3-44.9); Mean Corpuscular HGB Conc 32.2 g/dL (31.6-35.5); Mean Corpuscular Hemoglobin 29.1 pg (28.0-33.3); Mean Corpuscular Volume 90.2 fL (83.0-100.0); Platelet Count 342 K/mcL (140-400); Red Blood Count 3.06 M/mcL (3.82-4.97); Red Cell Distribution Width 15.5 % (11.5-14.5)
[2020-04-26 05:09] LABS: White Blood Count 36.2 K/mcL (4.3-11.1)
[2020-04-26 05:18] LABS: BUN/Creatinine Ratio 39 (6-26); Blood Urea Nitrogen 38 mg/dL (8-23); Carbon Dioxide 27 mEq/L (23-29); Chloride 101 mEq/L (98-107); Glucose 139 mg/dL (70-105); Magnesium 2.2 mg/dL (1.6-2.6); Osmolality,Calculated 289 (280-300); Phosphorous 4.2 mg/dL (2.7-4.5); Potassium 4.3 mEq/L (3.5-5.1); Sodium 134 mEq/L (136-145); eGFR For African Americans > 60 (> 60); eGFR For Non-African Americans 56 (> 60)
[2020-04-26 05:36] LABS: Lymphocytes # 1.5 K/mcL (0.6-4.6); Monocytes # 2.2 K/mcL (0.0-1.3); Neutrophils # 32.6 K/mcL (1.6-8.9); Platelet Estimate Normal (Normal)
[2020-04-26] MEDS: MethylPREDNISolone 40 MG/ML VIAL IVP SCH ×2 (06:24→16:22)
[2020-04-26] MEDS: *HR* Heparin 5,000 UNIT/ML VIAL SQ SCH ×2 (06:24→16:22)
[2020-04-26] MEDS: Aspirin Enteric Coated 81 MG Tablet PO SCH (07:48)
[2020-04-26] MEDS: Cyanocobalamin (B-12) 1,000 MCG TABLET PO SCH (07:48)
[2020-04-26] MEDS: Furosemide 40 MG TABLET PO SCH (07:52)
[2020-04-26] MEDS ORDERED: 0.9 % Sodium Chloride 1,000 ML IVC SCH (10:15)
[2020-04-26 10:50] LABS: ABG Base Excess 1 mEq/L (-2 to 3); ABG HCO3 25 mEq/L (21-27); ABG Oxygen Saturation 96 % (95-98); ABG PCO2 37 mmHg (35-45); ABG PH 7.44 pH Units (7.32-7.45); ABG PO2 77 mmHg (85-104); ABG TCO2 27 mEq/L (20-26)
[2020-04-26] MEDS: Sennosides/Docusate Sodium TABLET PO PRN (22:08)
[2020-04-26] MEDS: *HR* OxyCODONE/APAP 5/325 TABLET PO PRN (22:08)
[2020-04-26] MEDS: Metoprolol XL (24 HR) Succ 25 MG TAB.ER.24H PO SCH (22:09)
[2020-04-27] MEDS: Cefepime HCl 1,000 MG in Water for inj. (sterile) 10 ML IVP SCH ×3 (01:32→16:15)
[2020-04-27 02:10] LABS: Hemoglobin 8.2 g/dL (11.5-15.4); Mean Corpuscular HGB Conc 32.8 g/dL (31.6-35.5); Mean Corpuscular Hemoglobin 28.8 pg (28.0-33.3); Mean Corpuscular Volume 87.7 fL (83.0-100.0); Mean Platelet Volume 8.7 fL (9.4-12.4); Platelet Count 320 K/mcL (140-400); Red Blood Count 2.85 M/mcL (3.82-4.97); Red Cell Distribution Width 15.2 % (11.5-14.5); White Blood Count 23.4 K/mcL (4.3-11.1)
[2020-04-27 02:29] LABS: BUN/Creatinine Ratio 38 (6-26); Blood Urea Nitrogen 33 mg/dL (8-23); Calcium 8.5 mg/dL (8.6-10.3); Carbon Dioxide 25 mEq/L (23-29); Chloride 102 mEq/L (98-107); Glucose 124 mg/dL (70-105); Magnesium 2.3 mg/dL (1.6-2.6); Osmolality,Calculated 289 (280-300); Phosphorous 4.1 mg/dL (2.7-4.5); Potassium 4.3 mEq/L (3.5-5.1); Sodium 135 mEq/L (136-145); eGFR For African Americans > 60 (> 60); eGFR For Non-African Americans > 60 (> 60)
[2020-04-27 02:59] LABS: Lymphocytes # 0.9 K/mcL (0.6-4.6); Monocytes # 0.9 K/mcL (0.0-1.3); Neutrophils # 21.5 K/mcL (1.6-8.9); Platelet Estimate Normal (Normal)
[2020-04-27] MEDS: Levalbuterol Neb 1.25 MG/3 ML IH SCH ×4 (03:24→21:46)
[2020-04-27] MEDS: MethylPREDNISolone 40 MG/ML VIAL IVP SCH ×2 (06:34→18:37)
[2020-04-27] MEDS: *HR* Heparin 5,000 UNIT/ML VIAL SQ SCH ×2 (06:34→18:36)
[2020-04-27] MEDS: Cyanocobalamin (B-12) 1,000 MCG TABLET PO SCH (07:51)
[2020-04-27] MEDS: Aspirin Enteric Coated 81 MG Tablet PO SCH (07:51)
[2020-04-27] MEDS ORDERED: levoFLOXacin 750 MG/150 ML 750 MG/150 ML BAG IVPB SCH ×2 (09:00→17:00)
[2020-04-27] MEDS: Metoprolol XL (24 HR) Succ 25 MG TAB.ER.24H PO SCH (20:12)
[2020-04-27] MEDS: Sennosides/Docusate Sodium TABLET PO PRN (20:15)
[2020-04-27] MEDS: *HR* OxyCODONE/APAP 5/325 TABLET PO PRN (23:04)
[2020-04-28] MEDS: Cefepime HCl 1,000 MG in 0.9 % Sodium Chloride Mini Bag 100 ML IVPB SCH ×2 (03:43→15:49)
[2020-04-28] MEDS: Levalbuterol Neb 1.25 MG/3 ML IH SCH ×4 (03:56→21:19)
[2020-04-28 05:36] LABS: Basophils % 0.1 %; Hematocrit 27.5 % (35.3-44.9); Hemoglobin 8.4 g/dL (11.5-15.4); Immature Granulocytes % 0.9 % (0-4); Lymphocytes # 0.7 K/mcL (0.6-4.6); Lymphocytes % 3.8 %; Mean Corpuscular HGB Conc 30.5 g/dL (31.6-35.5); Mean Corpuscular Hemoglobin 27.5 pg (28.0-33.3); Mean Corpuscular Volume 90.2 fL (83.0-100.0); Mean Platelet Volume 9.2 fL (9.4-12.4); Monocytes # 0.7 K/mcL (0.0-1.3); Monocytes % 3.8 %; Neutrophils # 16.4 K/mcL (1.6-8.9); Nucleated Red Blood Cells 0.1 /100 WBC (0); Platelet Count 347 K/mcL (140-400); Red Blood Count 3.05 M/mcL (3.82-4.97); Red Cell Distribution Width 15.4 % (11.5-14.5); Segmented Neutrophils % 91.4 %
[2020-04-28] MEDS: MethylPREDNISolone 40 MG/ML VIAL IVP SCH ×2 (06:03→16:28)
[2020-04-28] MEDS: *HR* Heparin 5,000 UNIT/ML VIAL SQ SCH ×2 (06:06→16:29)
[2020-04-28] MEDS: Aspirin Enteric Coated 81 MG Tablet PO SCH (07:43)
[2020-04-28] MEDS: Cyanocobalamin (B-12) 1,000 MCG TABLET PO SCH (07:44)
[2020-04-28] MEDS: levoFLOXacin 750 MG/150 ML 750 MG/150 ML BAG IVPB SCH (16:29)
[2020-04-28] MEDS: Metoprolol XL (24 HR) Succ 25 MG TAB.ER.24H PO SCH (20:15)
[2020-04-28] MEDS: *HR* OxyCODONE/APAP 5/325 TABLET PO PRN (23:29)
[2020-04-29] MEDS: Cefepime HCl 1,000 MG in 0.9 % Sodium Chloride Mini Bag 100 ML IVPB SCH ×2 (03:58→16:03)
[2020-04-29] MEDS: Levalbuterol Neb 1.25 MG/3 ML IH SCH ×4 (04:04→22:12)
[2020-04-29] MEDS: *HR* Heparin 5,000 UNIT/ML VIAL SQ SCH ×2 (05:01→18:34)
[2020-04-29] MEDS: MethylPREDNISolone 40 MG/ML VIAL IVP SCH (05:01)
[2020-04-29 06:05] LABS: Basophils % 0.1 %; Hematocrit 28.8 % (35.3-44.9); Hemoglobin 9.1 g/dL (11.5-15.4); Immature Granulocytes % 1.5 % (0-4); Lymphocytes # 1.5 K/mcL (0.6-4.6); Lymphocytes % 6.8 %; Mean Corpuscular HGB Conc 31.6 g/dL (31.6-35.5); Mean Corpuscular Hemoglobin 28.7 pg (28.0-33.3); Mean Corpuscular Volume 90.9 fL (83.0-100.0); Mean Platelet Volume 9.2 fL (9.4-12.4); Monocytes # 1.2 K/mcL (0.0-1.3); Monocytes % 5.6 %; Neutrophils # 18.4 K/mcL (1.6-8.9); Nucleated Red Blood Cells 0.1 /100 WBC (0); Platelet Count 360 K/mcL (140-400); Red Blood Count 3.17 M/mcL (3.82-4.97); Red Cell Distribution Width 15.5 % (11.5-14.5); White Blood Count 21.3 K/mcL (4.3-11.1)
[2020-04-29 06:18] LABS: BUN/Creatinine Ratio 32 (6-26); Blood Urea Nitrogen 25 mg/dL (8-23); Calcium 8.5 mg/dL (8.6-10.3); Carbon Dioxide 27 mEq/L (23-29); Chloride 102 mEq/L (98-107); Glucose 92 mg/dL (70-105); Osmolality,Calculated 282 (280-300); Potassium 3.8 mEq/L (3.5-5.1); Sodium 134 mEq/L (136-145); eGFR For African Americans > 60 (> 60); eGFR For Non-African Americans > 60 (> 60)
[2020-04-29] MEDS: Aspirin Enteric Coated 81 MG Tablet PO SCH (08:18)
[2020-04-29] MEDS: Cyanocobalamin (B-12) 1,000 MCG TABLET PO SCH (08:18)
[2020-04-29] MEDS: Metoprolol XL (24 HR) Succ 25 MG TAB.ER.24H PO SCH (21:07)
[2020-04-29] MEDS: *HR* OxyCODONE/APAP 5/325 TABLET PO PRN (21:11)
[2020-04-30] MEDS: Levalbuterol Neb 1.25 MG/3 ML IH SCH ×4 (03:55→21:38)
[2020-04-30] MEDS: Cefepime HCl 1,000 MG in 0.9 % Sodium Chloride Mini Bag 100 ML IVPB SCH ×2 (05:01→16:35)
[2020-04-30] MEDS: *HR* Heparin 5,000 UNIT/ML VIAL SQ SCH ×2 (05:07→17:31)
[2020-04-30 07:19] LABS: Basophils # 0.2 K/mcL (0.0-0.2); Basophils % 0.8 %; Eosinophils # 0.7 K/mcL (0.0-0.6); Eosinophils % 3.4 %; Hemoglobin 9.3 g/dL (11.5-15.4); Immature Granulocytes % 3.3 % (0-4); Lymphocytes # 2.7 K/mcL (0.6-4.6); Mean Corpuscular Hemoglobin 28.2 pg (28.0-33.3); Mean Corpuscular Volume 90.9 fL (83.0-100.0); Mean Platelet Volume 9.4 fL (9.4-12.4); Monocytes # 1.3 K/mcL (0.0-1.3); Monocytes % 6.9 %; Neutrophils # 13.8 K/mcL (1.6-8.9); Nucleated Red Blood Cells 0.2 /100 WBC (0); Platelet Count 319 K/mcL (140-400); Red Cell Distribution Width 15.8 % (11.5-14.5); Segmented Neutrophils % 71.6 %; White Blood Count 19.3 K/mcL (4.3-11.1)
[2020-04-30 08:24] LABS: BUN/Creatinine Ratio 28 (6-26); Blood Urea Nitrogen 21 mg/dL (8-23); Calcium 8.5 mg/dL (8.6-10.3); Carbon Dioxide 26 mEq/L (23-29); Chloride 104 mEq/L (98-107); Glucose 89 mg/dL (70-105); Osmolality,Calculated 286 (280-300); Potassium 3.4 mEq/L (3.5-5.1); Sodium 137 mEq/L (136-145); eGFR For African Americans > 60 (> 60); eGFR For Non-African Americans > 60 (> 60)
[2020-04-30] MEDS ORDERED: MethylPREDNISolone 40 MG/ML VIAL IVP SCH (09:00)
[2020-04-30] MEDS: Aspirin Enteric Coated 81 MG Tablet PO SCH (09:24)
[2020-04-30] MEDS: Cyanocobalamin (B-12) 1,000 MCG TABLET PO SCH (09:24)
[2020-04-30] MEDS: levoFLOXacin 750 MG/150 ML 750 MG/150 ML BAG IVPB SCH (17:31)
[2020-04-30] MEDS: Metoprolol XL (24 HR) Succ 25 MG TAB.ER.24H PO SCH (22:02)
[2020-04-30] MEDS: *HR* OxyCODONE/APAP 5/325 TABLET PO PRN (22:05)
[2020-05-01] MEDS: Levalbuterol Neb 1.25 MG/3 ML IH SCH ×2 (03:53→10:57)
[2020-05-01] MEDS: Cefepime HCl 1,000 MG in 0.9 % Sodium Chloride Mini Bag 100 ML IVPB SCH (04:44)
[2020-05-01] MEDS: *HR* Heparin 5,000 UNIT/ML VIAL SQ SCH (05:09)
[2020-05-01 06:41] LABS: Basophils # 0.1 K/mcL (0.0-0.2); Basophils % 0.3 %; Eosinophils # 0.4 K/mcL (0.0-0.6); Eosinophils % 1.8 %; Hematocrit 25.8 % (35.3-44.9); Hemoglobin 8.2 g/dL (11.5-15.4); Immature Granulocytes % 3.6 % (0-4); Lymphocytes # 1.7 K/mcL (0.6-4.6); Lymphocytes % 8.5 %; Mean Corpuscular HGB Conc 31.8 g/dL (31.6-35.5); Mean Corpuscular Hemoglobin 28.9 pg (28.0-33.3); Mean Corpuscular Volume 90.8 fL (83.0-100.0); Mean Platelet Volume 8.9 fL (9.4-12.4); Monocytes # 1.2 K/mcL (0.0-1.3); Nucleated Red Blood Cells 0.1 /100 WBC (0); Platelet Count 313 K/mcL (140-400); Red Blood Count 2.84 M/mcL (3.82-4.97); Segmented Neutrophils % 79.8 %
[2020-05-01 06:59] LABS: BUN/Creatinine Ratio 27 (6-26); Blood Urea Nitrogen 24 mg/dL (8-23); Calcium 8.4 mg/dL (8.6-10.3); Carbon Dioxide 29 mEq/L (23-29); Chloride 103 mEq/L (98-107); Glucose 97 mg/dL (70-105); Osmolality,Calculated 286 (280-300); Potassium 3.8 mEq/L (3.5-5.1); Sodium 136 mEq/L (136-145); eGFR For African Americans > 60 (> 60); eGFR For Non-African Americans > 60 (> 60)
[2020-05-01] MEDS: Aspirin Enteric Coated 81 MG Tablet PO SCH (07:42)
[2020-05-01] MEDS: Cyanocobalamin (B-12) 1,000 MCG TABLET PO SCH (07:44)
[2020-05-01] MEDS ORDERED: predniSONE 20 MG TABLET PO SCH (09:00)
[2020-05-01 10:08] VITALS: BP 130/84
== END 2020-05-01 14:05 | disposition home or self-care (01) | DRG 871 ==
LOC: CDU → SUATTDRO 13:25 → 3BNU 14:52 → SUATTDRO 04-25 11:33 → 3ANU 04-27 16:12
PROVIDERS: ADMIT Family Medicine; ATTEND Family Medicine

== ENCOUNTER 2020-05-27 14:59 | Inpatient (IN) ==
[2020-05-27 20:43] LABS: Adenovirus Not Detected (Not Detect); Bordetella Pertussis Not Detected (Not Detect); Chlamydophila pneumoniae Not Detected (Not Detect); Coronavirus 229E Not Detected (Not Detect); Coronavirus HKU1 Not Detected (Not Detect); Coronavirus NL63 Not Detected (Not Detect); Coronavirus OC43 Not Detected (Not Detect); Human Metapneumovirus Not Detected (Not Detect); Human Rhinovirus/Enterovirus Not Detected (Not Detect); Influenza A Subtype 2009 H1 Not Detected (Not Detect); Influenza B Not Detected (Not Detect); Mycoplasma pneumoniae Not Detected (Not Detect); Parainfluenza Virus 1 Not Detected (Not Detect); Parainfluenza Virus 2 Not Detected (Not Detect); Parainfluenza Virus 3 Not Detected (Not Detect); Parainfluenza Virus 4 Not Detected (Not Detect); Respiratory Syncytial Virus Not Detected (Not Detect); SARS-CoV-2 Not Detected (Not Detect)
[2020-05-27] MEDS ORDERED: Naloxone 0.4 MG/ML INJ IVP PRN (21:13)
[2020-05-27] MEDS ORDERED: Ondansetron 4 MG/2 ML VIAL IVP PRN (21:13)
[2020-05-27 22:29] LABS: Basophils % 0.3 %; Hematocrit 32.1 % (35.3-44.9); Hemoglobin 9.8 g/dL (11.5-15.4); Immature Granulocytes % 0.6 % (0-4); Lymphocytes # 0.6 K/mcL (0.6-4.6); Lymphocytes % 5.6 %; Mean Corpuscular HGB Conc 30.5 g/dL (31.6-35.5); Mean Corpuscular Hemoglobin 27.3 pg (28.0-33.3); Mean Corpuscular Volume 89.4 fL (83.0-100.0); Mean Platelet Volume 8.9 fL (9.4-12.4); Monocytes # 0.4 K/mcL (0.0-1.3); Monocytes % 3.6 %; Neutrophils # 9.1 K/mcL (1.6-8.9); Platelet Count 562 K/mcL (140-400); Red Blood Count 3.59 M/mcL (3.82-4.97); Red Cell Distribution Width 15.3 % (11.5-14.5); Segmented Neutrophils % 89.9 %; White Blood Count 10.1 K/mcL (4.3-11.1)
[2020-05-27] MEDS ORDERED: Azithromycin 250 MG TABLET PO SCH (22:30)
[2020-05-27 22:41] LABS: VBG HCO3 34 mEq/L (21-27); VBG PCO2 66 mmHg (41-51); VBG PH 7.32 pH Units (7.32-7.42); VBG PO2 92 mmHg (25-50)
[2020-05-27 22:51] LABS: BUN/Creatinine Ratio 23 (6-26); Blood Urea Nitrogen 19 mg/dL (8-23); Calcium 9.4 mg/dL (8.6-10.3); Carbon Dioxide 34 mEq/L (23-29); Chloride 100 mEq/L (98-107); Glucose 127 mg/dL (70-105); Osmolality,Calculated 294 (280-300); Potassium 4.3 mEq/L (3.5-5.1); Sodium 140 mEq/L (136-145); eGFR For African Americans > 60 (> 60); eGFR For Non-African Americans > 60 (> 60)
[2020-05-27] MEDS ORDERED: Ondansetron ODT 4 MG TAB.RAPDIS PO PRN (22:57)
[2020-05-27] MEDS: Ipratropium/Albuterol Neb 3 ML IH SCH (23:42)
[2020-05-28 00:03] LABS: Troponin I 0.15 ng/mL (< 0.04)
[2020-05-28 02:20] LABS: Basophils % 0.3 %; Hematocrit 32.4 % (35.3-44.9); Hemoglobin 9.7 g/dL (11.5-15.4); Immature Granulocytes % 0.8 % (0-4); Lymphocytes % 8.6 %; Mean Corpuscular HGB Conc 29.9 g/dL (31.6-35.5); Mean Corpuscular Hemoglobin 26.9 pg (28.0-33.3); Mean Platelet Volume 8.9 fL (9.4-12.4); Monocytes # 0.6 K/mcL (0.0-1.3); Monocytes % 5.4 %; Neutrophils # 9.7 K/mcL (1.6-8.9); Platelet Count 580 K/mcL (140-400); Red Cell Distribution Width 15.6 % (11.5-14.5); Segmented Neutrophils % 84.9 %; White Blood Count 11.5 K/mcL (4.3-11.1)
[2020-05-28 02:25] LABS: INR 1.1; Prothrombin Time 12.4 Seconds (9.4-12.1)
[2020-05-28 02:46] LABS: Alanine Aminotransferase 8 Units/L (7-52); Albumin 3.5 g/dL (3.5-5.7); Albumin/Globulin Ratio 1.1 (1.1-2.2); Alkaline Phosphatase 93 Units/L (34-104); Aspartate Amino Transferase 12 Units/L (13-39); BUN/Creatinine Ratio 23 (6-26); Bilirubin,Total 0.3 mg/dL (0.3-1.0); Blood Urea Nitrogen 18 mg/dL (8-23); Calcium 9.3 mg/dL (8.6-10.3); Carbon Dioxide 33 mEq/L (23-29); Chloride 99 mEq/L (98-107); Chol/HDL Ratio 3.6 (0-4.9); Cholesterol 182 mg/dL (< 200); Globulin 3.3 g/dL (2.4-3.5); Glucose 106 mg/dL (70-105); HDL Cholesterol 51 mg/dL (40-59); LDL Cholesterol,Calculated 112 mg/dL (< 100); Magnesium 2.3 mg/dL (1.6-2.6); Osmolality,Calculated 296 (280-300); Phosphorous 4.9 mg/dL (2.7-4.5); Potassium 4.2 mEq/L (3.5-5.1); Sodium 142 mEq/L (136-145); Total Protein 6.8 g/dL (6.4-8.9); Triglycerides 97 mg/dL (< 150); eGFR For African Americans > 60 (> 60); eGFR For Non-African Americans > 60 (> 60)
[2020-05-28] MEDS: Ipratropium/Albuterol Neb 3 ML IH SCH ×4 (03:27→22:08)
[2020-05-28] MEDS: MethylPREDNISolone 40 MG/ML VIAL IVP SCH ×2 (05:19→17:54)
[2020-05-28] MEDS: *HR* Heparin 5,000 UNIT/ML VIAL SQ SCH ×2 (05:20→17:54)
[2020-05-28] MEDS: Aspirin Enteric Coated 81 MG Tablet PO SCH (08:32)
[2020-05-28] MEDS: Furosemide 40 MG/4 ML VIAL IVP SCH ×2 (08:32→19:33)
[2020-05-28] MEDS: Cyanocobalamin (B-12) 1,000 MCG TABLET PO SCH (08:33)
[2020-05-28] MEDS: Metoprolol XL (24 HR) Succ 25 MG TAB.ER.24H PO SCH (08:33)
[2020-05-28] MEDS: Budesonide/Formoterol 160/4.5 1 PUFF INH IH SCH ×2 (10:52→22:08)
[2020-05-28] MEDS ORDERED: Isovue-370 500 ML BOTTLE IVP ONE (11:42)
[2020-05-28] MEDS: Piperacillin/Tazobactam 3.375 GM in 0.9 % Sodium Chloride Mini Bag 100 ML IVPB SCH ×3 (13:00→23:07)
[2020-05-28] MEDS: ALPRAZolam 0.5 MG TABLET PO PRN (17:55)
[2020-05-28] MEDS ORDERED: cefTRIAXone 2,000 MG in 0.9 % Sodium Chloride Mini Bag 100 ML IVPB SCH (22:22)
[2020-05-28] MEDS: *HR* OxyCODONE/APAP 5/325 TABLET PO PRN (23:07)
[2020-05-29 03:31] LABS: Basophils % 0.2 %; Hematocrit 29.1 % (35.3-44.9); Immature Granulocytes % 0.8 % (0-4); Lymphocytes % 5.8 %; Mean Corpuscular HGB Conc 30.9 g/dL (31.6-35.5); Mean Corpuscular Hemoglobin 27.1 pg (28.0-33.3); Mean Corpuscular Volume 87.7 fL (83.0-100.0); Mean Platelet Volume 9.1 fL (9.4-12.4); Monocytes # 0.6 K/mcL (0.0-1.3); Monocytes % 3.7 %; Neutrophils # 14.9 K/mcL (1.6-8.9); Platelet Count 573 K/mcL (140-400); Red Blood Count 3.32 M/mcL (3.82-4.97); Red Cell Distribution Width 15.7 % (11.5-14.5); Segmented Neutrophils % 89.5 %; White Blood Count 16.6 K/mcL (4.3-11.1)
[2020-05-29] MEDS: Ipratropium/Albuterol Neb 3 ML IH SCH ×5 (03:36→23:16)
[2020-05-29 03:50] LABS: Alanine Aminotransferase 6 Units/L (7-52); Albumin 3.4 g/dL (3.5-5.7); Albumin/Globulin Ratio 1.1 (1.1-2.2); Alkaline Phosphatase 84 Units/L (34-104); Aspartate Amino Transferase 13 Units/L (13-39); BUN/Creatinine Ratio 29 (6-26); Bilirubin,Total 0.3 mg/dL (0.3-1.0); Blood Urea Nitrogen 25 mg/dL (8-23); Calcium 8.8 mg/dL (8.6-10.3); Carbon Dioxide 32 mEq/L (23-29); Chloride 95 mEq/L (98-107); Glucose 145 mg/dL (70-105); Osmolality,Calculated 291 (280-300); Potassium 3.6 mEq/L (3.5-5.1); Sodium 137 mEq/L (136-145); Total Protein 6.4 g/dL (6.4-8.9); eGFR For African Americans > 60 (> 60); eGFR For Non-African Americans > 60 (> 60)
[2020-05-29] MEDS: MethylPREDNISolone 40 MG/ML VIAL IVP SCH ×2 (05:21→16:17)
[2020-05-29] MEDS: *HR* Heparin 5,000 UNIT/ML VIAL SQ SCH ×2 (05:21→17:46)
[2020-05-29] MEDS: Furosemide 40 MG/4 ML VIAL IVP SCH (08:25)
[2020-05-29] MEDS: Piperacillin/Tazobactam 3.375 GM in 0.9 % Sodium Chloride Mini Bag 100 ML IVPB SCH ×3 (08:25→23:24)
[2020-05-29] MEDS: Metoprolol XL (24 HR) Succ 25 MG TAB.ER.24H PO SCH (08:26)
[2020-05-29] MEDS: Cyanocobalamin (B-12) 1,000 MCG TABLET PO SCH (08:26)
[2020-05-29] MEDS: ALPRAZolam 0.5 MG TABLET PO PRN ×2 (08:26→20:59)
[2020-05-29] MEDS: Aspirin Enteric Coated 81 MG Tablet PO SCH (08:27)
[2020-05-29] MEDS ORDERED: NON-FORMULARY MEDICATION 1 EACH EACH (Duloxetine Hcl 60 MG) PO SCH (09:00)
[2020-05-29 11:09] LABS: Immature Reticulocyte % 28.1 % (11.0-38.0); Retculocyte # 0.08 M/mcL (0.05-0.10); Reticulocyte % 2.5 % (1.6-2.8)
[2020-05-29 11:14] LABS: % Iron Saturation 14 % (15-50); Iron 45 mcg/dL (50-170); Lactate Dehydrogenase 152 Units/L (140-271); Transferrin 236 mg/dL (203-362)
[2020-05-29 11:32] LABS: Ferritin 128 ng/mL (10-120)
[2020-05-29] MEDS: Budesonide/Formoterol 160/4.5 1 PUFF INH IH SCH ×2 (11:47→19:14)
[2020-05-29] MEDS: Furosemide 40 MG TABLET PO SCH ×2 (13:01→19:41)
[2020-05-29] MEDS ORDERED: Albuterol 2.5 MG/3 ML NEBULIZER IH PRN (21:23)
[2020-05-29] MEDS ORDERED: Albuterol 2.5 MG/3 ML NEBULIZER ONE (21:28)
[2020-05-29] MEDS: *HR* OxyCODONE/APAP 5/325 TABLET PO PRN (22:32)
[2020-05-30 01:09] LABS: Basophils # 0.1 K/mcL (0.0-0.2); Basophils % 0.4 %; Hematocrit 32.1 % (35.3-44.9); Hemoglobin 9.8 g/dL (11.5-15.4); Immature Granulocytes % 2.1 % (0-4); Lymphocytes # 0.8 K/mcL (0.6-4.6); Lymphocytes % 3.9 %; Mean Corpuscular HGB Conc 30.5 g/dL (31.6-35.5); Mean Corpuscular Hemoglobin 26.8 pg (28.0-33.3); Mean Corpuscular Volume 87.7 fL (83.0-100.0); Monocytes # 1.6 K/mcL (0.0-1.3); Monocytes % 7.6 %; Nucleated Red Blood Cells 0.1 /100 WBC (0); Platelet Count 579 K/mcL (140-400); Red Blood Count 3.66 M/mcL (3.82-4.97); Red Cell Distribution Width 15.8 % (11.5-14.5); White Blood Count 20.9 K/mcL (4.3-11.1)
[2020-05-30 01:18] LABS: Calcium 8.4 mg/dL (8.6-10.3); Potassium 3.4 mEq/L (3.5-5.1)
[2020-05-30] MEDS: Ipratropium/Albuterol Neb 3 ML IH SCH ×6 (04:12→23:10)
[2020-05-30] MEDS: *HR* Heparin 5,000 UNIT/ML VIAL SQ SCH ×2 (05:23→16:27)
[2020-05-30] MEDS: MethylPREDNISolone 40 MG/ML VIAL IVP SCH ×2 (05:24→16:27)
[2020-05-30] MEDS: Budesonide/Formoterol 160/4.5 1 PUFF INH IH SCH ×2 (07:31→19:57)
[2020-05-30] MEDS: Piperacillin/Tazobactam 3.375 GM in 0.9 % Sodium Chloride Mini Bag 100 ML IVPB SCH ×2 (08:46→16:26)
[2020-05-30] MEDS: Metoprolol XL (24 HR) Succ 25 MG TAB.ER.24H PO SCH (08:46)
[2020-05-30] MEDS: Aspirin Enteric Coated 81 MG Tablet PO SCH (08:46)
[2020-05-30] MEDS: Cyanocobalamin (B-12) 1,000 MCG TABLET PO SCH (08:46)
[2020-05-30] MEDS: *HR* LORazepam 0.5 MG TABLET PO PRN (13:55)
[2020-05-30] MEDS ORDERED: *HR* LORazepam 2 MG/ML VIAL IVP STA (16:16)
[2020-05-30 16:34] LABS: ABG Base Excess 8 mEq/L (-2 to 3); ABG HCO3 34 mEq/L (21-27); ABG Oxygen Saturation 91 % (95-98); ABG PCO2 54 mmHg (35-45); ABG PH 7.41 pH Units (7.32-7.45); ABG PO2 62 mmHg (85-104); ABG TCO2 36 mEq/L (20-26); Blood Gas Pressure Support 12 cm H2O
[2020-05-30 18:41] LABS: Kappa Qnt Free Light Chains 21.68 mg/L (3.30-19.40); Lambda Qnt Free Light Chains 19.32 mg/L (5.71-26.30)
[2020-05-30] MEDS: Doxycycline 100 MG in 0.9 % Sodium Chloride Mini Bag 100 ML IVPB SCH (19:35)
[2020-05-31] MEDS: MethylPREDNISolone 40 MG/ML VIAL IVP SCH ×3 (00:32→16:11)
[2020-05-31] MEDS: Piperacillin/Tazobactam 3.375 GM in 0.9 % Sodium Chloride Mini Bag 100 ML IVPB SCH ×3 (00:33→16:12)
[2020-05-31] MEDS ORDERED: Chloraseptic Spray 177 ML BOTTLE MM PRN (00:50)
[2020-05-31 01:05] LABS: Basophils # 0.2 K/mcL (0.0-0.2); Basophils % 0.7 %; Hematocrit 29.8 % (35.3-44.9); Hemoglobin 9.1 g/dL (11.5-15.4); Immature Granulocytes % 4.7 % (0-4); Lymphocytes # 1.3 K/mcL (0.6-4.6); Lymphocytes % 6.4 %; Mean Corpuscular HGB Conc 30.5 g/dL (31.6-35.5); Mean Corpuscular Volume 88.4 fL (83.0-100.0); Mean Platelet Volume 8.9 fL (9.4-12.4); Monocytes % 4.7 %; Neutrophils # 17.2 K/mcL (1.6-8.9); Nucleated Red Blood Cells 0.3 /100 WBC (0); Platelet Count 517 K/mcL (140-400); Red Blood Count 3.37 M/mcL (3.82-4.97); Segmented Neutrophils % 83.5 %; White Blood Count 20.6 K/mcL (4.3-11.1)
[2020-05-31 01:24] LABS: BUN/Creatinine Ratio 24 (6-26); Blood Urea Nitrogen 18 mg/dL (8-23); Calcium 8.8 mg/dL (8.6-10.3); Carbon Dioxide 33 mEq/L (23-29); Chloride 103 mEq/L (98-107); Glucose 150 mg/dL (70-105); Magnesium 2.1 mg/dL (1.6-2.6); Osmolality,Calculated 299 (280-300); Sodium 142 mEq/L (136-145); eGFR For African Americans > 60 (> 60); eGFR For Non-African Americans > 60 (> 60)
[2020-05-31 01:47] LABS: Alpha 2 Globulin (PEP) 1.05 g/dL (0.48-1.05); Beta Globulin (PEP) 1.04 g/dL (0.48-1.10)
[2020-05-31] MEDS: Ipratropium/Albuterol Neb 3 ML IH SCH ×6 (04:01→23:05)
[2020-05-31] MEDS: *HR* Heparin 5,000 UNIT/ML VIAL SQ SCH ×2 (06:11→16:33)
[2020-05-31] MEDS: Doxycycline 100 MG in 0.9 % Sodium Chloride Mini Bag 100 ML IVPB SCH ×2 (06:11→18:21)
[2020-05-31] MEDS: Budesonide/Formoterol 160/4.5 1 PUFF INH IH SCH ×2 (07:35→19:30)
[2020-05-31] MEDS: Aspirin Enteric Coated 81 MG Tablet PO SCH (07:51)
[2020-05-31] MEDS: Metoprolol XL (24 HR) Succ 25 MG TAB.ER.24H PO SCH (07:51)
[2020-05-31] MEDS: Cyanocobalamin (B-12) 1,000 MCG TABLET PO SCH (07:52)
[2020-05-31 07:59] LABS: IFE Reflexed NOT DONE
[2020-05-31] MEDS: *HR* LORazepam 0.5 MG TABLET PO PRN (12:39)
[2020-05-31] MEDS: *HR* OxyCODONE/APAP 5/325 TABLET PO PRN (21:19)
[2020-06-01] MEDS: Piperacillin/Tazobactam 3.375 GM in 0.9 % Sodium Chloride Mini Bag 100 ML IVPB SCH ×3 (00:16→15:38)
[2020-06-01] MEDS: MethylPREDNISolone 40 MG/ML VIAL IVP SCH ×3 (00:18→15:37)
[2020-06-01 01:23] LABS: BUN/Creatinine Ratio 25 (6-26); Blood Urea Nitrogen 18 mg/dL (8-23); C-Reactive Protein < 5 mg/L (Less than 10); Calcium 8.8 mg/dL (8.6-10.3); Carbon Dioxide 29 mEq/L (23-29); Chloride 103 mEq/L (98-107); Glucose 132 mg/dL (70-105); Osmolality,Calculated 294 (280-300); Potassium 3.5 mEq/L (3.5-5.1); Sodium 140 mEq/L (136-145); eGFR For African Americans > 60 (> 60); eGFR For Non-African Americans > 60 (> 60)
[2020-06-01] MEDS: Ipratropium/Albuterol Neb 3 ML IH SCH ×6 (03:51→23:46)
[2020-06-01] MEDS: *HR* Heparin 5,000 UNIT/ML VIAL SQ SCH ×2 (05:33→17:23)
[2020-06-01] MEDS: Doxycycline 100 MG in 0.9 % Sodium Chloride Mini Bag 100 ML IVPB SCH (05:34)
[2020-06-01] MEDS: Budesonide/Formoterol 160/4.5 1 PUFF INH IH SCH ×2 (07:30→20:01)
[2020-06-01] MEDS: Metoprolol XL (24 HR) Succ 25 MG TAB.ER.24H PO SCH (08:47)
[2020-06-01] MEDS: Cyanocobalamin (B-12) 1,000 MCG TABLET PO SCH (08:47)
[2020-06-01] MEDS: Aspirin Enteric Coated 81 MG Tablet PO SCH (08:48)
[2020-06-01] MEDS: Furosemide 40 MG TABLET PO SCH (11:59)
[2020-06-01] MEDS: *HR* OxyCODONE/APAP 5/325 TABLET PO PRN (12:52)
[2020-06-01] MEDS: Doxycycline 100 MG CAPSULE PO SCH (21:28)
[2020-06-02] MEDS: MethylPREDNISolone 40 MG/ML VIAL IVP SCH ×3 (00:21→15:56)
[2020-06-02] MEDS: Piperacillin/Tazobactam 3.375 GM in 0.9 % Sodium Chloride Mini Bag 100 ML IVPB SCH ×3 (00:21→15:55)
[2020-06-02] MEDS: Ipratropium/Albuterol Neb 3 ML IH SCH ×6 (03:59→23:15)
[2020-06-02 05:52] LABS: Hematocrit 29.7 % (35.3-44.9); Hemoglobin 8.9 g/dL (11.5-15.4); Mean Corpuscular Hemoglobin 27.1 pg (28.0-33.3); Mean Corpuscular Volume 90.5 fL (83.0-100.0); Mean Platelet Volume 9.2 fL (9.4-12.4); Nucleated Red Blood Cells 0.6 /100 WBC (0); Platelet Count 437 K/mcL (140-400); Red Blood Count 3.28 M/mcL (3.82-4.97); Red Cell Distribution Width 16.8 % (11.5-14.5); White Blood Count 21.8 K/mcL (4.3-11.1)
[2020-06-02] MEDS: *HR* Heparin 5,000 UNIT/ML VIAL SQ SCH ×2 (06:05→17:16)
[2020-06-02 06:11] LABS: BUN/Creatinine Ratio 30 (6-26); Blood Urea Nitrogen 26 mg/dL (8-23); Calcium 8.6 mg/dL (8.6-10.3); Carbon Dioxide 30 mEq/L (23-29); Chloride 102 mEq/L (98-107); Glucose 132 mg/dL (70-105); Magnesium 2.2 mg/dL (1.6-2.6); Osmolality,Calculated 297 (280-300); Potassium 3.6 mEq/L (3.5-5.1); Sodium 140 mEq/L (136-145); eGFR For African Americans > 60 (> 60); eGFR For Non-African Americans > 60 (> 60)
[2020-06-02 06:12] LABS: Lymphocytes # 0.9 K/mcL (0.6-4.6); Neutrophils # 20.9 K/mcL (1.6-8.9)
[2020-06-02] MEDS: Budesonide/Formoterol 160/4.5 1 PUFF INH IH SCH ×2 (07:25→19:46)
[2020-06-02] MEDS: Doxycycline 100 MG CAPSULE PO SCH ×2 (11:00→20:43)
[2020-06-02] MEDS: Metoprolol XL (24 HR) Succ 25 MG TAB.ER.24H PO SCH (11:00)
[2020-06-02] MEDS: Aspirin Enteric Coated 81 MG Tablet PO SCH (11:00)
[2020-06-02] MEDS: Furosemide 40 MG TABLET PO SCH (11:00)
[2020-06-02] MEDS: Cyanocobalamin (B-12) 1,000 MCG TABLET PO SCH (11:01)
[2020-06-02] MEDS: *HR* OxyCODONE/APAP 5/325 TABLET PO PRN (22:57)
[2020-06-03] MEDS: Piperacillin/Tazobactam 3.375 GM in 0.9 % Sodium Chloride Mini Bag 100 ML IVPB SCH ×2 (00:27→07:37)
[2020-06-03] MEDS: MethylPREDNISolone 40 MG/ML VIAL IVP SCH ×2 (00:27→07:33)
[2020-06-03] MEDS: Ipratropium/Albuterol Neb 3 ML IH SCH ×3 (04:00→11:41)
[2020-06-03 04:14] LABS: BUN/Creatinine Ratio 31 (6-26); Blood Urea Nitrogen 23 mg/dL (8-23); Calcium 8.3 mg/dL (8.6-10.3); Carbon Dioxide 29 mEq/L (23-29); Chloride 101 mEq/L (98-107); Glucose 129 mg/dL (70-105); Osmolality,Calculated 291 (280-300); Potassium 3.4 mEq/L (3.5-5.1); Sodium 138 mEq/L (136-145); eGFR For African Americans > 60 (> 60); eGFR For Non-African Americans > 60 (> 60)
[2020-06-03] MEDS: *HR* Heparin 5,000 UNIT/ML VIAL SQ SCH (05:18)
[2020-06-03] MEDS: Aspirin Enteric Coated 81 MG Tablet PO SCH (07:32)
[2020-06-03] MEDS: Furosemide 40 MG TABLET PO SCH (07:32)
[2020-06-03] MEDS: Cyanocobalamin (B-12) 1,000 MCG TABLET PO SCH (07:32)
[2020-06-03 07:44] VITALS: BP 132/88
[2020-06-03] MEDS: Budesonide/Formoterol 160/4.5 1 PUFF INH IH SCH (07:46)
[2020-06-03] MEDS: Metoprolol XL (24 HR) Succ 25 MG TAB.ER.24H PO SCH (07:58)
[2020-06-03] MEDS: Doxycycline 100 MG CAPSULE PO SCH (09:15)
== END 2020-06-03 12:54 | disposition home health service (06) | DRG 871 ==
LOC: SUATTDRO 19:34 → CDU 19:34 → 2NNU 21:54 → 2ANU 05-29 17:28
PROVIDERS: ADMIT Internal Medicine; ATTEND Internal Medicine